=== PATIENT | female | born 1945 | race Caucasian/White ===

== ENCOUNTER 2021-02-25 07:49 | Inpatient (IN) | payer MEDICARE, OTHER ==
[~2021-02-25] VITALS: Ht 152.4 cm; Wt 62.3 kg
--- OUTSIDE RECORDS SUMMARY | 2021-02-25 07:52 | XMS ---
PreManage Notification: BRISSA COATES Security Back Tender Pulp Drier Events No recent Security Events currently on file CRITERIA MET - 6 ED Visits in 6 Months - [facility] - 3 Facilities in 90 Days - [facility] JAKI TANNER Current PHONE: Unknown Aurea Tong Community Health Worker 12/18/2020-Current PHONE: [phone] Edna has no Care Guidelines for this patient. E.Sharon VISIT COUNT (12 MO.) [address] TOTAL 8 NOTE: Visits indicate total known visits. ED/UCC VISIT TRACKING (12 MO.) 02/25/2021 07:50 [facility]TT[facility] [place] TYPE: Emergency COMPLAINT: - FALL, HEAD WOUND INJURY 12/17/2020 16:58 [facility] [place] TYPE: Emergency DIAGNOSES: - Pleural effusion, not elsewhere classified - SOB 12/16/2020 17:28 Elsie Mallory [place] TYPE: Emergency COMPLAINT: - Shortness of Breath - SHORTNESS OF BREATH - OTHER FORMS OF DYSPNEA - CRAMP AND SPASM DIAGNOSES: 0. Shortness of breath 1. Contusion of eyeball and orbital tissues, unspecified eye, initial encounter 5. Fall on same level from slipping, tripping and stumbling without subsequent striking against object, initial encounter 6. Peripheral vascular disease, unspecified 7. Hyperlipidemia, unspecified 8. Essential (primary) hypertension 9. FDC (current) use of aspirin 10. Other fpc (current) drug therapy 10/29/2020 15:54 [facility] [place] TYPE: Emergency DIAGNOSES: - Unstable angina - CHEST PAIN 10/08/2020 14:50 [facility] [place] TYPE: Emergency DIAGNOSES: - Epigastric pain - POSSIBLE HEART ATTACK 09/27/2020 09:27 [facility] [place] TYPE: Emergency DIAGNOSES: - Acute cystitis without hematuria - CONFUSION - Dehydration - Disorientation, unspecified 09/17/2020 14:31 Elsie CROOKS TYPE: Emergency COMPLAINT: - Ambulance 09/17/2020 13:05 [facility] TYPE: Emergency DIAGNOSES: - CHEST PAIN - ST elevation (STEMI) myocardial infarction of unspecified site INPATIENT VISIT TRACKING (12 MO.) 09/17/2020 14:31 Elsie CROOKS TYPE: Medical Surgical COMPLAINT: - STEMI DIAGNOSES: 0. Chest pain, unspecified 1. ST elevation (STEMI) myocardial infarction involving other coronary artery of anterior wall 2. Toxic gastroenteritis and colitis 3. Drug-induced myopathy 4. Unspecified systolic (congestive) heart failure 5. Ischemic cardiomyopathy 6. Adverse effect of antihyperlipidemic and antiarteriosclerotic drugs, initial encounter 7. Unspecified place in hospital as the place of occurrence of the external cause 8. Other chronic pain 9. Dorsalgia, unspecified 10. Restless legs syndrome 11. Opioid dependence, in remission 12. Contusion of unspecified lower leg, initial encounter 13. Obesity, unspecified 14. Body mass index [BMI] 28.0-28.9, adult [email or web address]
[2021-02-25] MEDS ORDERED: LIPITOR40 MG PO (08:35)
[2021-02-25] MEDS ORDERED: BRILINTA90 MG PO (08:35)
[2021-02-25] MEDS ORDERED: DONEPEZIL HCL5 MG PO (08:36)
[2021-02-25] MEDS ORDERED: LISINOPRIL2.5 MG PO (08:36)
[2021-02-25] MEDS ORDERED: CITALOPRAM HBR20 MG PO (08:36)
[2021-02-25] MEDS ORDERED: TOPROL XL25 MG PO (08:36)
[2021-02-25] MEDS ORDERED: REMERON15 MG PO (08:37)
[2021-02-25] MEDS ORDERED: OMEPRAZOLE20 MG PO (08:37)
[2021-02-25] MEDS ORDERED: CO Q-10200 MG PO (08:38)
[2021-02-25] MEDS ORDERED: ASPIRIN81 MG PO (08:38)
[2021-02-25] MEDS ORDERED: LASIX20 MG PO (08:38)
[2021-02-25] MEDS ORDERED: TORSEMIDE20 MG PO (08:39)
[2021-02-25] MEDS ORDERED: KLOR-CON 1010 MEQ PO (08:39)
[2021-02-25] MEDS ORDERED: NITROGLYCERIN0.4 MG SL (08:39)
--- NOTE | 2021-02-25 11:54 | NUR ---
REPORT RECEIVED FROM TARA ARGUELLO. AWAITING PTS ARRIVAL TO UNIT. DR. RAMIRES CONSULTED AND STATES NO REPEAT TROPONIN NEEDED.
--- NOTE | 2021-02-25 12:45 | NUR ---
PT ARRIVED FROM ER. 2 PERSON ASSIST UP TO USE BEDSIDE COMODE. PT VOIDS CLEAR YELLOW URINE. STANDING WEIGHT TAKEN AT BEDSIDE. PT ASSISTED WITH OLEG CARE. DEPENDS CHANGED. RESPIRATORY RATE NOTED TO BE 32-36 WITH ACTIVITY. SLOWS TO 24 WHEN RESTING. PT ORIENTED TO ALL BUT DATE AND TIME, ABLE TO STATE THAT SHE FELL BUT DOES NOT UNDERSTANDING WHY SHE IS IN THE HOSPITAL, "I DON'T FEEL SICK, WHY AM I HERE?" PT REORIENTS EASILY AND FOLLOWS DIRECTIONS WELL. TACHYCARDIA NOTED WITH ACTIVITY. CRACKELS NOTED IN BASES OF LUNGS WITH DEMINISHED LEFT LOWER LOBE. PT ENDORSES SHORTNESS OF BREATH BUT ALSO STATES HER BREATHING FEELS "NORMAL." +2 PITTING EDEMA NOTED TO BILATERAL LOWER EXTREMITIES. PTS DAUGHTER STATES HERE THIGHS ARE ALSO MORE SWOLLEN THAN USUAL, NO PITTING EDEMA NOTED AT THIS TIME. PT ORIENTED TO ROOM. BED ALARM PLACED. PTS DAUGHTER IN LAW, NIXON, AT BEDSIDE. NIXON ANSWERS QUESTIONS ABOUT PTS MEDICAL HISTORY. NO ADDITIONAL REQUESTS OR COMPLAINTS. CALL LIGHT WITHIN REACH. BED RAILS UP. BED ALARM ON.
[2021-02-25] MEDS ORDERED: ROPINIROLE HCL1 MG PO (13:23)
[2021-02-25] MEDS ORDERED: LO-DOSE ASPIRIN81 MG PO (13:24)
[2021-02-25] MEDS ORDERED: MIRTAZAPINE15 MG PO (13:27)
--- NOTE | 2021-02-25 13:30 | NUR ---
MEDICATIONS GIVEN. LUNCH ARRIVED. HEAD OF BED ELEVATED TO 52 DEGREES WHILE PT IS EATING. TACHYPNEA NOTED WITH EATING WITH RR OF 32, MD AWARE. MEDICATIONS GIVEN. NO SWALLOWING ISSUES NOTED AT THIS TIME. OXGYEN SATURATION REMAINS ABOVE 94% ON ROOM AIR. FLUID RESTRICTION REVIEWED WITH PT. PT VERBALIZES UNDERSTANDING AND IS ABLE TO REPEAT BACK INFORMATION. BED RAILS UP. CALL LIGHT WITHIN REACH. BED ALARM ON.
[2021-02-25] MEDS ORDERED: TYLENOL EXTRA500 MG PO (13:50)
[2021-02-25] MEDS ORDERED: VITAMIN D350 MC3 PO (13:50)
--- NOTE | 2021-02-25 14:02 | NUR ---
MED REC COMPLETE
--- NOTE | 2021-02-25 14:29 | NUR ---
THIS RN TO ROOM TO CHECK ON PT. PT CONTINUES TO HAVE RR OF 28-32. PT CROOKED IN BED, REPORTS SHE WAS RECENTLY UP TO BEDSIDE COMODE WITH TARA LEVY. PT REPOSITIONED IN BED FOR COMFORT. PTS DAUGHTER-IN LAW REPORTS PT HAS BEEN MAKING STATEMENTS INDICATING CONFUSION INCLUDING "AM I ." PT CONTINUES TO DENY PAIN AND NAUSEA. BED ALARM RESET. NO ADDITIONAL REQUESTS OR COMPLAINTS. CALL LIGHT WITHIN REACH. BED RAILSUP.
--- NOTE | 2021-02-25 14:34 | NUR ---
DR. RAMIRES UPDATED ON PTS WORK OF BREATHING AND RESPIRTORY RATE. NEW MEDICATIONS ORDERED.
--- NOTE | 2021-02-25 15:20 | NUR ---
THIS RN TO ROOM TO CHECK ON PT. PT RESTING IN BED. IV LASIX GIVEN BY TARA LEVY. PT CONTINUES TO DENY PAIN AND NAUSEA. PT ASSISTED WITH BRUSHING TEETH PER HER REQUEST. CURTINS CLOSED AFTER ECHOCARDIOGRAM, BLINDS REOPENED AND LIGHTS IN ROOM TURNED ON. PT VERBALIZES THAT SHE "CAN'T FIGURE OUT WHAT TIME IT IS." PT REORIENTED TO TIME AND SITUATION. PTS DAUGHTER IN LAW REMAINS AT BEDSIDE. NO ADDITIONAL REQUESTS OR COMPLAINTS. CALL LIGHT WITHIN REACH. BED RAILS UP.
--- NOTE | 2021-02-25 15:55 | NUR ---
Consult received for nutrition education for CHF. Patient has been living with her son and [id number] for the past 5 weeks. She has dementia. Son and DIL prepare meals for her. They were told patient needs a low sodium diet but that was about it when she was discharged from previous facility. Since patient has been living with family, she has not been salting her food like she used to, which was only certain things like watermelon, tomatoes, and eggs. Provided patient and family a handout titled "Heart Failure Nutrition Therapy" that has a list of foods recommended and foods not recommended. It says to limit sodium to no more than 2,000 mg per day. I explained that processed/packaged foods have the most sodium so keep those to a minimum. A few tips provided for eating out. The handout includes a sample menu. Patient needs to be repositioned so her nurse came in. Patient or family have no questions at this time. I left my name and office # on the handout in case further questions arise.
--- NOTE | 2021-02-25 16:10 | NUR ---
PT ADMITTED THIS SHIFT FOR CHF EXACERBATION. PT UP WITH 1-2 PERSON ASSIST UP TO BEDSIDE COMODE THIS SHIFT. MULTIPLE FALLS RECENTLY WITH NOTALBE BRUISING AND BUMPS ON HEAD. PT DOES NOT REMEMBER FALLS. PT TOLERATING 2GM SODIUM DIET WELL. HAS TROUBLE WITH 1600ML FLUID RESTRICITON, WANTING TO DRINK FREQUENTLY, MOUTH SWABS PROVIDED. PT NOTABLY SHORT OF BREATH WITH ACITIVTY AND OCCATIONALLY AT REST, MD AWARE OF RESPIRATORY RATE, IV LASIX GIVEN WITH GOOD RESULTS. PT DENIES PAIN AND NAUSEA THIS SHIFT, PELVIC FRACTURE NOTED FROM PAST FALL. TELEMETRY MONITORING IN PLACE WITH NORMAL SINUS RHYTEM NOTED, OCCATIONAL TACHYCARDIA ESPICAILLY WITH ACTIVITY. ECHOCARDIOGRAM DONE TODAY. PT VOIDING QUANITY SUFFICIENT. PT USES CALL LIGHT INCONSISTANTLY, BED ALARM FOR SAFETY.
--- NOTE | 2021-02-25 16:14 | NUR ---
PT CALL LIGHT ON. PT REQUESTS ASSISTANCE UP TO RESTROOM. 1 PERSON ASSIST UP TO BEDSIDE COMODE. PT VOIDS 400ML CLEAR YELLOW URINE. NOTED THAT PTS RESPIRATION RATE HAS IMPROVED, NOW 24-28 WITH ACTIVITY. OLEG CARE DONE, FRESH DEPENDS IN PLACE. 1 PERSON ASSIST BACK TO BED. PT USING MOUTH SWABS SHE STATES "I JUST NEED TO DRINK A LOT OF WATER." EDUCATION DONE WITH PT. PTS SON AT BEDSIDE AND REINFORCES EDUCATION. NO ADDITIONAL REQUESTS OR COMPLAINTS. CALL LIGHT WIHTIN REACH. BED RAILS UP. BED ALARM ON.
--- NOTE | 2021-02-25 17:38 | NUR ---
MEDICATION DUE. THIS RN TO ROOM TO CHECK ON PT. PT EATING DINNER, SITTING UP IN BED. PT CONTINUES TO STATE. "i JUST NEED TO DRINK MORE WATER" EDUCATION DONE WITH PT REGARDING FLUID RESTRICTION. VITAL SIGNS STABLE. PT RESTING IN BED WITH HEAD OF BED ELEVATED TO 35 DEGREES. PT DENIES ADDITIONAL REQUESTS OR COMPLAINTS. BED ALARM ON. CALL LIGHT WIHTIN REACH.
--- NOTE | 2021-02-25 18:09 | NUR ---
PT WAVING OUT OF WINDOW AT NURSES, SEEN BY THIS RN. THIS RN TO ROOM, PT REPORTS SHE NEEDS TO USE THE RESTROOM. 1 PERSON ASSIST UP TO BEDSIDE COMODE. PT VOIDS WITHOUT ISSUE. OLEG CARE PERFORMED, FRESH DEPENDS IN PLACE. 1 PERSON ASSIST BACK TO BED. PT CONTINUES TO HAVE RESPIRATORY RATE FROM 32-40 WITH ACTIVITY. OXGYEN SATURATIONS REMAIN 94-97%. TACHYCARDIA WITH ACTIVITY CONTINUES. MD AWARE. PT HAS SMALL BOWEL MOVEMENT WELL. SMALL HOPE OF STOOL NOTED. NIO BOWEL REGIEM ORDERED. PT DENIES CONSTIPATION. PT RESTING IN BED WITH HEAD OF BED ELEVATED TO 30 DEGREES. RR SLOWS TO 28. BED RAILS UP. CALL LIGHT WITHIN REACH. BED ALARM ON.
--- NOTE | 2021-02-25 18:20 | NUR ---
TELEMEMETRY RN CALLED TO STATE PT HAD A 6 SECOND RUN OF SVT. MD UPDATED ON SVT, RESPIRATORY RATE, LABORED BREATHING AND POSSIBLE CONSTIPATION. DR. RAMIRES STATES TO HOLD NIO BOWEL REGEMIN ORDER, NO ORDER PLACED. NEW MEDICATIONS ORDERED BY DR. RAMIRES. AWAITING VERFICATION FROM PHARAMCY.
--- NOTE | 2021-02-25 18:43 | NUR ---
MEDICATIONS DUE. IV TO LEFT FORARM ASSESSED, WNL. NO S/S OF PHELBITIS NOTED. MEDICATIONS TRIED CONNCURENTLY, PT REPORTS BURNING TO IV SITE. POTASSIUM STOPPED. MAGNEISUM INFUSING AT THIS TIME. 2ND IV STARTED PER PROTOCOL TO LEFT HAND. POTSASSIUM INFUSING THROUGH NEW RIGHT HAND IV AT 50ML/HR RATHER THAN 100ML/HR, DILUTED WITH CONCURRENT 50ML/HR NS. PT TOELRATING INFUSION AT THIS TIME WITHOUT ANY BURNING TO IV SITE. PT TAKES A SIP OF WATER AND HAS A COUGHING FIT. BED SIDE SWALLOW EVALUATION DONE. PT PASSESS WITHOUT COUGHING, THROAT CLEARNING OR OTHER SWALLOWING DIFFICTULIES NOTED. PT RESTING IN BED. BED RAILS UP. CALL LIGHT WITHIN REACH. BED ALARM ON. HEAD OF BED ELEVATED TO 37 DEGREES.
--- NOTE | 2021-02-25 19:38 | NUR ---
SHIFT REPORT RECIEVED FROM NATE PACHECO. PT RESTING IN BED, NO NEEDS AT THIS TIME. CALL LIGHT IN REACH.
--- NOTE | 2021-02-25 21:15 | EKG ---
[facility] [address] [place] [address] Signed Sinus rhythm with premature supraventricular complexes Left axis deviation Low voltage QRS Possible Inferior infarct , age undetermined Cannot rule out Anteroseptal infarct , age undetermined Abnormal ECG No previous ECGs available Confirmed by HERNANDO RAMIRES MD ([id number]) on 02/25/2021 9:15:06 PM Electronically Signed By: HERNANDO RAMIRES MD 02/25/212114 PATIENT NAME: BRISSA COATES Electrocardiogram DATE OF : 41 PHYSICIAN: HERNANDO RAMIRES MD REPORT #: [id number] REPORT IS CONFIDENTIAL AND NOT TO BE RELEASED WITHOUT AUTHORIZATION
--- NOTE | 2021-02-25 21:35 | NUR ---
IN TO GET VITALS, ASSIST PT TO THE BSC, PT BACK TO BED, NO FURTHER NEEDS AT THIS TIME
--- NOTE | 2021-02-25 21:55 | NUR ---
ASSESSMENT, VS AND I&O COMPLETED. PT EDUCATION PROVIDED CONCERNING FLUID RESTRICTION. PT FORGETFUL AND CONFUSED AT TIMES. GCS 15, ORIENTED TO SELF AND PLACE. UPPER LOBES EXPIRATORY WHEEZING AND LOWER LOBES DIMINISHED. HEART TONES REGULAR. CPOX 95, RA, TELE HR SR @88. ABD SOFT, NONTENDER, BOWEL TONES ACTIVE. CMS INTACT. BLE EDEMA 2 +, GENERALIZED THIGH EDEMA. IVs WNL, CDI, FLUSHED WELL. SCHEDULED MEDS PROVIDED. SCATTERED BRUISING, BUMPS ON HEAD AND SCATTERED ABRASIONS NOTED. AWILDA CABRERA IN ROOM TO ASSIST TO BSC.
--- NOTE | 2021-02-26 00:27 | NUR ---
bed alarm sounding. pt sba to bsc and back to bed. pt rr increases to 30 with activity. no other needs at this time. call light in reach, bed alarm on.
--- NOTE | 2021-02-26 01:38 | NUR ---
BED ALARM SOUNDING. PT ASSISTED TO BSC AND BACK TO BED. SOB WITH ACTIVITY. TELE HR ST @ 100. PT ASKS ABOUT WATER, RN REMINDS HER OF FLUID RESTRICTION, PT IS ACCEPTING. PT CONFUSED, TALKING ABOUT HAVING WRITING ON HER BACK BUT THERE IS NONE. BED ALRM AND CALL LIGHT EDUCATION PROVIDED. NO OTHER NEEDS. CALL LIGHT IN REACH.
--- NOTE | 2021-02-26 03:00 | NUR ---
BED ALARMING, PT THINKS IT IS MORNING. REORIENTED AND REMINDED SHE CANNOT HAVE MORE WATER YET. PT VERBALIZES UNDERSTANDING. ASSESSMENT COMPLETED. PT ORIENTED TO SELF AND PLACE ONLY. HR SR @ 95. LUNG SOUNDS CLEAR IN UPPER LOBES, DIMINISHED IN LOWER LOBES. CMS INTACT. BLE 1+ EDEMA. NO OTHER NEEDS. CALL LIGHT IN REACH.
--- NOTE | 2021-02-26 03:06 | NUR ---
bed alarm set off, pt sitting upright in bed, pt asks to put her clothes on, reminded pt its only 3am, pt asks for more water, let pt know she is still on a fluid restriction, but provided oral swabs for comfort, bed alarm reset
--- NOTE | 2021-02-26 05:44 | NUR ---
BED ALARM SOUNDING, PT ASKS TO USE BR. EDUCATION PROVIDED CONCERNING BED ALARM, CALL LIGHT AND BED REST PROVIDED. PT SBA TO BSC AND BACK TO BED. PT HAD SOB AND TACHYPNEA WITH ACTIVITY, SPO2 DECREASED TO 84% BUT QUICKLY RETURNED TO 90%. PT ASKS FOR WATER. GLYCERIN STICKS PROVED. BED ALARM ON. NO OTHER NEEDS. CALL LIGHT IN REACH.
--- NOTE | 2021-02-26 07:25 | NUR ---
REPORT RECEIVED FROM TARA KAUFMAN. PT RESTING WITH EYES CLOSED ON BACK WITH HEAD OF BED ELEVATED TO 30 DEGREES. HEART RATE 88 WITH NORMAL SINUS RHYTHEM NOTED. RESPIRATIONS EVEN AND UNLABORED WITH RR = 24. PT ALLOWED TO REST. BED RAILS UP. CALL LIGHT WITHIN REACH. BED ALARM ON.
--- NOTE | 2021-02-26 08:34 | NUR ---
Patient recieved AM care. Patient recieved breakfast from the dietary department. Patient is on bedrest currently.
--- NOTE | 2021-02-26 09:00 | NUR ---
THIS RN UPDATED CAM ORGANIZATION DEVELOPMENT CONSULTANT ON PTS STATUS, NEEDS AND PLAN OF CARE. CAM RN TO ASSIT PT WITH MORNING CARES AND MEDICAITONS THIS RN IS OCCUPIED.
--- NOTE | 2021-02-26 09:50 | NUR ---
MORNING ASSESSMENT DUE. PT RESTING IN BED. ACTUARIAL SCIENCE TEACHER AT BEDSIDE FOR VITAL SIGNS. 1 PERSON ASSIST UP TO BEDSIDE COMODE. PT VOIDS WIHTOUT ISSUE. RESPIRATORY RATE IMPROVED TODAY WITH ACTIVITY RR NOTED TO BE 24-32. BREATHING LESS LABORED. OLEG CARE PERFORMED. FRESH DEPENDS IN PLACE. NO GLUTEAL SKIN WOUND NOTED. STAND BY ASSIST BACK TO BED. PT ORIENTED TO SELF, FOLLOWING DIRECTIONS AND FAMILY. PT UNSURE OF PLACE, REPORTS [place] BUT KNOWS SHE IS AT THE HOSPITAL. PTS FAMILY REPORTS PT "SEEMS MORE CLEAR TODAY." PT FOLLOWING DIRECTIONS WELL, CARRING ON CONVERSATION. PTS DAUGHTER IN LAW STATES PT SEEMS "ALMOST LIKE A NEW LADY. ITS REASSURING TO SEE HER ALERTNESS AND HER LISTENING AND NOT JUST STARING." RESPIRATORY RATE 24 AT REST, IMPROVED WORK OF BREATHING TODAY. PT ABLE TO BREATH THROUGH NOSE, LESS LABORED THAT YESTERDAY. OXGYEN SATURATIONS OF 95% ON ROOM AIR. SMALL EXPIRATORY WHEEZE NOTED ON LEFT SIDE OF LUNGS. DEMINISHED LUNG SOUNDS ON LEFT WELL. PT CONTINUES TO BE MIDLY TACHYCARDIC WITH ACTIVITY, UP TO 110'S. PITTING EDEMA TO BLE IMPROVING, NOW +1. BUMPS TO HEAD UNCHANGED. PT RESTING IN BED AT THIS TIME, BED TURNED SO PT CAN VISIT WITH FAMILY AND LOOK OUT THE WINDOW. PTS DAUGHTER IN LAW REPORTS PT BEING ABLE TO LOOK AT THE LIGHT AND OUT THE WINDOW IS A BIG IMPROVMENT FOR HER. NO ADDITIONAL REQUESTS OR COMPLAINTS. LUNCH ORDER PLACED. BED ALARM ON. CALL LIGHT WITHIN REACH. FAMILY AT BEDSIDE.
--- NOTE | 2021-02-26 10:02 | NUR ---
Patient vitals, I&Os are completed. Patient via BSC, SBA, 1PA. RN is working with patient at the moment. Call light is in reach.
--- NOTE | 2021-02-26 10:04 | NUR ---
Notified by Dr Perla, pt will need placement pt SNF on Monday. Chart faxed to [facility] and called and updated.
--- NOTE | 2021-02-26 10:30 | NUR ---
PT AND FAMILY FINISHED COMPLETING POLST FORM. FORM BROUGHT TO DR. RAMIRES FOR REVIEW. COPIES MAKES AND PLACED ON CHART AND GIVEN TO PTS FAMILY. ORIGINAL ON FRONT OF CHART. CHARGE NURSE UPDATED.
--- NOTE | 2021-02-26 11:08 | NUR ---
BED ALARM SOUNDING. PT GETTING UP WITH PHYSICAL THERAPY. 1 PERSON ASSIST WITH FRONT WHEEL WALKER UP TO RESTROOM. PT ABLE TO AMBULATE WITH RR 24-32. WORK OF BREATHING STABLE. PT UP TO CHAIR WITH 1 PERSON ASSIST. CHAIR ALARM PLACED. ROSEMARIE, PHYSICAL THERAPIST REMAINS AT BEDSIDE. LINENS CHANGED. CALL LIGHT WITHIN REACH.
--- NOTE | 2021-02-26 11:30 | NUR ---
PTS FAMILY NURSES STATION ASKING IF PT CAN HAVE HER WATER. CONSULTED AND STATES OK FOR PT TO HAVE CLEAR LIQUIDS IN SMALL AMOUNTS PROIR TO SWALLOW EVALUATION.
--- NOTE | 2021-02-26 12:18 | NUR ---
LUNCH ARRIVED. PT UP TO CHAIR AND TAKING SMALL BITES. PTS FAMILY REPORTS PT STATES THE FOOD "JUST DOESN'T TASTE AT ALL." PT ABLE TO IDENTIFY ALCOHOL SWAB SMELL UNDER NOSE. PT DRINKS APPLE JUICE AND STARTS TO COUGH. TRARasta REMOVED, ESEQUIEL TRAN THERAPIST TO BEDSIDE FOR SWALLOW EVALUATION, CHELSEA UPDATED ON PTS STATUS. OXYGEN SATURATION OF 99% ON ROOM AIR. FAMILY AT BEDSIDE. CALL LIGTH WITHIN REACH. CHAIR ALARM ON.
--- NOTE | 2021-02-26 12:35 | NUR ---
ESEQUIEL TRAN THERAPIST, FINISHED WORKING WITH PT. CHELSEA STATES TO CHANGE PTS DIET TO MINCED MOIST WITH MODERATLY THICK LIQUIDS. APPLE JUICE THICKENED, WATER AT BEDSIDE THICKENED TO MODERATLY THICK LEVEL. RR NOTED TO BE 36, WORK OF BREATHING INCREASED. PT REPORTS SHE IS READY TO REST IN BED, FINISHED WITH LUNCH, MINIMAL APPITITE NOTED. DIETARY ORDER CHANGED. 1 PERSON ASSIST UP TO BEDSIDE COMODE. PT VOIDS CLEAR YELLOW URINE, OLEG CARE DONE, DEPENDS CHANGED. 1 PERSON ASSIST BACK TO BED. WARM BALNKETS PROVIDED. PT REPORTS SHE IS "SEEING WOMEN IN A CONSTITUTION PARTY DRESS AND A BOX FULL OF MEAT IN THE ROOM." PT REPORTS THESE VISIONS GO AWAY WHEN SHE OPENS HER EYES. RR SLOWS TO 24. WORK OF BREATHING IMPROVED. PT RESTING IN BED. WITH HEAD OF BED ELEVATED TO 30 DEGREES. CALL LIGHT WIHTIN REACH. FAMILY AT BEDSIDE. BED ALARM ON.
--- NOTE | 2021-02-26 14:11 | NUR ---
Family said that patient just tasted the food, but didn't like the taste so the patient didn't eat her lunch. Vitals, I&Os are complete. Patient via BSC, 100ml of urine and 1 small formed BM. B/P was 109/55. MAP was 63. The RN will be informed. The call light is in reach.
--- NOTE | 2021-02-26 14:45 | NUR ---
AFTERNOON ASSESSMENT DUE. THIS RN TO ROOM. INCREASED WORK OF BREATHING NOTED. RR = 32 AT REST. GRUNTING NOTED. PT CALMS FOR A TIME AND THEN RETURNS TO INCREASED WORK OF BREATHING. LUNG SOUNDS CLEAR, DEMINISHED IN LEFT LOWER LOBE. PT REPORTS NEED TO USE RESTROOM. 1 PERSON ASSIST UP TO BEDSIDE COMODE. RR INCREASES TO 40BPM. PT UNABLE TO TALK WHILE TRYING TO BREATH. PT HAS SMALL LOOSE BOWEL MOVEMENT. OLEG CARE DONE. 1 PERSON ASSIST BACK TO BED. PUMP ALARMING, INFUSION AND FLUSH COMPLETE. IV SALINE LOCKED, ALCOHOL CAP APPLIED. ASSESSMENT DONE: PT CONTINUES TO BE DISORIENTD TO PLACE, TIME AND DATE, PT UNSURE OF EVENTS, REPORTS SHE IS AT THE HOSPITAL FOR "MESSED UP THOUGHTS." PT UNABLE TO CLARIFY, CONTINUES BREATHING HARD BETWEEN SENTENCES. LUNG SOUNDS CLEAR ON RIGHT SIDE, LEFT SIDE SHOWS EXPIRATORY WHEEZES WITH DEMINISHED SOUNDS IN LEFT LOWER LOBE. N OADDITIONAL CHANGES TO ASSESSMENT AT THIS TIME. PT RESTING IN BED WITH HEAD OF BED ELEVATED TO [address]IVEWAY ATTENDANT, CAM, TO BEDSIDE, TO OBSERVE PTS BREATHING. BED RAILS UP. CALL LIGHT JIM WHIPPLE. BED ALARM ON.
--- NOTE | 2021-02-26 16:06 | NUR ---
THIS RN TO ROOM TO CHECK ON PT. PT RESTING IN BED WITH EYES CLOSED, RR = 24, LABORED AT TIMES. BED RAILS UP. HEAD OF BED ELEVATED TO 30 DEGREES. BED ALARM ON. PT ALLOWED TO REST.
--- NOTE | 2021-02-26 16:25 | NUR ---
PT HERE FOR CHF EXACERBATION AND INCREASED FALLS WITH INJURIES. PT UP TO BEDSIDE COMODE, CHAIR AND WITH PHYSICAL THERAPY WITH 1 PERSON ASSIST THIS SHIFT. INCREASED COUGHING EPISODES THIS SHIFT, SWALLOW EVALUATION COMPLETED. DIET ORDER CHANGED TO MINCED MOIST WITH MODERATLY THICK LIQUIDS. PT CONTINUES TO HAVE INCREASED WORK OF BREATHING AND TACHYPNEA, WORSENED WITH ACTIVITY AND AGITATION. TELEMETRY MONITORING REMAINS IN NORMAL SINUS RHYTHEM THIS SHIFT, TACHYCARDIA NOTED WITH ACTIVITIES. PT REMAINS ON ROOM AIR WITH OXGYEN SATURATIONS ABOVE 90%. PT DENIES PAIN AND NAUSEA THIS SHIFT. POLST FORM COMPLETED BY PT, PTS SON (POA), AND DR. RAMIRES. PT VOIDING QUANTITY SUFFICIENT. PT DOES NOT USE CALL LIGHT CONSISTANTLY, ALARM CHAIR ALARM.
--- NOTE | 2021-02-26 17:03 | NUR ---
KAUSHAL, RN STATES PT WAS UP TO BEDSIDE COMODE WITH HER AND BEGAN REPORTING PAIN IN LEFT HIP. THIS RN TO ROOM. PT UNABLE TO CLARIFY PAIN. PT CONFIRMS THAT HER LEFT HIP IS HURTING. FLACC SCORE OF 5/10. TYLENOL GIVEN (SEE MAR). PHARMACY CALLED AND ASKED IF PTS MEDICAITONS CAN BE GIVEN CRUSHED. MINNA DOAN STATES YES, ALL MEDICATIONS CAN BE CRUSHED. MEDICATIONS GIVEN CRUSHED IN APPLESUCE. PT SWALLOWS WELL, NO CHOAKING OR COUGHING NOTED. RR WITH GRUNTING AND MOANING CONTINUES. RR = 32. MD UPDATED. NO ADDITIONAL REQUESTS OR COMPLAINTS. BED RAILS UP. BED ALARM ON. PT REPOSITIONED IN BED WITH HEAD OF BED ELEVATED TO 35 DEGREES.
--- NOTE | 2021-02-26 17:32 | NUR ---
DR. RAMIRES UPDATED ON PT STATUS, RESPIRATOY RATE AND AGITATION. NO NEW ORDERS AT THIS TIME.
--- NOTE | 2021-02-26 17:47 | NUR ---
Patient is resting. Seems to be hyperventilating from time to time. Patient ate 25% of meal and 100 ml of juice. Call light is in reach. BP is 90/46. MAP IS 57. RN was notified.
--- NOTE | 2021-02-26 18:17 | NUR ---
BLOOD PRESSURE REPORTED TO BE LOW BY INSTRUCTOR OF SOCIOLOGY. THIS RN TO ROOM. BLOOD PRESSURE TAKEN MANUALLY TO RIGHT ARM BY THIS RN AND NOTED TO BED 79/46 (MAP OF 54), HEART RATE OF 84 AND OXYGEN SATURATION OF 94% ON ROOM AIR. BLOOD PRESSURE RETAKEN WITH PT LYING FLAT IN BED AND NOTED TO BE 75/52. BLOOD PRESSURE TO LEFT ARM NOTED TO BE 80/40. REPIRTORY RATE OF 32-40. PT MAKING STATEMENT "I'M GOING TO HERE. MY HEART JUST ISN'T MAKING IT." PALPABLE PULESE NOTED TO LEFT [facility], AND BILATERAL LOWER EXREMITIES. FAINT PULSE NOTED TO RIGHT ARM. FLACC SCORE OF 4/10. ABDOMEN SOFT WITH NO DISTENTION OR DISCOLORATION NOTED. NO NEW BRUISING, DISCOLORATION OR PAIN NOTED TO PELVIC AREA. DEPENDS BACK IN PLACE. MD UPDATED ON PTS STATUS. NO NEW ORDERS AT THIS TIME. PT RESTING IN BED WITH HEAD OF BED ELEVATED TO 34 DEGREES. BED RAILS UP. BED ALARM ON.
--- NOTE | 2021-02-26 19:10 | NUR ---
SHIFT REPORT RECEIVED FROM DAYSHIFT TARA SULLIVAN AT BEDSIDE. pt AWAKE AND INTERACTIVE WITH PRINTED CIRCUIT BOARD PCB DESIGNER, HX DEMENTIA. HOB ELEVATED AND BED ALARM ON FOR SAFETY. NO DISTRESS NOTED, RR APPROX 24, NO DISTRESS NOTED AT THIS TIME. CALL LIGHT IN REACH.
--- NOTE | 2021-02-26 19:45 | NUR ---
BED ALARM SET OFF, PT TRYING TO GET OUT OF BED, ASSISTED PT UP TO THE BSC, SMALL AMT VOID AND BM PT BACK TO BED,
--- NOTE | 2021-02-26 20:00 | NUR ---
GETTING PT VITALS, TIDIED RM, BOOSTING PT, FAMILY IN TO VISIT AT THIS TIME, NO FURTHER NEEDS, RN IN FOR ASSESSMENT
--- NOTE | 2021-02-26 20:20 | NUR ---
ASSESSMENT COMPLETE, SCHEDULED MEDS GIVEN CRUSHED AND IN APPLESAUCE, pt TOLERATED WELL AND FOLLOWED PROMPTING WHEN TO TUCK CHIN. PER TELEPHARMACY, OKAY TO GIVE EVENING MEDS TOGETHER AND CRUSHED. SON AND DAUGHTER IN LAW IN ROOM, INTERACTIVE WITH pt. pt AWAKE AND SINGING IN BED. BP RESULT OF 76/52 MAP OF 56 ON LEFT ARM, REPEATED ON RIGHT ARM WITH RESULT OF 116/85 MAP OF 94. MANUAL TAKEN ON RIGHT ARM, RESULT OF 78/50, HR REMAINS WNL DO OTHER VS. CAP REFILL WNL, BILATERAL PEDAL AND RADIAL PULSES NOTED, BUT WEAK. DENIES DIZZINESS, BUT HAS HX OF DEMENTIA, DIFFICULT TO OBTAIN ACCURATE RESPONSES AT TIMES. DR RAMIRES MADE AWARE, PER MD, CALL IF BP CONTINUES TO TREND DOWN OR IF OTHER SYMPTOMS OF POSSIBLE SEPSIS IS NOTICED. WILL CONTINUE TO MONITOR, FAMILY ALSO UPDATED. FRESH THICKENED WATER PER DIET ORDER AT BEDSIDE. BED ALARM ON. CALL LIGHT IN REACH.
--- NOTE | 2021-02-26 22:15 | NUR ---
TELE LEADS REPLACED AND IN CORRECT PLACEMENT, pt FOUND AWAKE AND IN BED PULLING OFF TELE LEADS. EDUCATION PROVIDED ON NEED FOR LEADS AND pt REORIENTED TO DATE AND TIME, EASILY REORIENTED AND IN BED WITH EYES CLOSED. NO DISTRESS NOTED, CALL LIGHT IN REACH AND BED ALARM ON FOR SAFETY.
--- NOTE | 2021-02-26 22:50 | NUR ---
BED ALARM SET OFF, IN TO CHECK ON PT, CHECKED PT FOR INCONT, ASSISTED PT TO THE BSC WITH 2PA PIVOT, VOIDED AND SMALL BM, BACK TO BED, TEMP CHECKED AND SIP OF WATER PROVIDED, PT BOOSTED AND BED ALARM RESET, NO FURTYHER NEEDSAT THIS TIME
--- NOTE | 2021-02-26 23:16 | NUR ---
BED ALARM GOING OFF, pt TALKING TO SELF AND ASKING WHAT "THAT NOISE WAS". pt INITIALLY DENIED NEEDING TO VOID BUT WAS ENCOURAGED TO TRY, UP 2PA WITH FWW TO BSC. 100MLS URINE OUTPUT WITH SMALL BM NOTED. OLEG CARE DONE AND pt BACK IN BED. RESPIRATIONS SOMEWHAT LABORED AFTER AMBULATION, BUT RESOLVED AFTER pt BOOSTED IN BED AND HOB ELEVATED. RR CURRENTLY 24, EVEN AND UNLABORED. pt TOOK X2-3 SMALL SIPS OF THICKENED WATER, NO FURTHER NEEDS. CALL LIGHT IN REACH AND BED ALARM ON.
--- NOTE | 2021-02-27 | NUR ---
PT SIITING UP IN BED, ALARM SET OFF, PT ASKING TO GET UP, READY, AND DRESSED, REMINDING PT OF THE TIME, PT WANTED TO STAND UP STILL OFFERED THE BSC JUST IN CASE, PT AGREES TO TRY, NO VOID, NO INCONT, PT BACK TO BED, SIP OF WATER PROVIDED, BED ALARM ON, PT STATES HER SON WILL BE HERE TO PICK HER UP, AND SHE WILL TAKE ANOTHER NAP BEFORE HE ARRIVES, ENCURAGED PT TO NAP, NO FURTHER NEEDS AT THIS TIME
--- NOTE | 2021-02-27 00:30 | NUR ---
BED ALARM SET OFF, PT WANTING TO GET UP TO VOID, ASSISTED OVER TO BSC, VOID AND SMEAR BM, PT BACK TO BED, BED ALARM RESET, NO FURTHER NEEDS AT THIS TIME
--- NOTE | 2021-02-27 01:00 | NUR ---
IN TO GET VITALS, REPORTED TO RN, NO FURTHER NEEDS AT THIS TIME
--- NOTE | 2021-02-27 02:06 | NUR ---
pt RESTING IN BED WITH EYES CLOSED. RR EVEN AND UNLABORED. NO DISTRESS NOTED, VS RECENTLY TAKEN AND BP IMPROVING. WILL CONTINUE TO MONITOR, CALL LIGHT IN REACH. BED ALARM ON.
--- NOTE | 2021-02-27 03:40 | NUR ---
BED ALARM SET OFF, PT NEEDING TO USE THE BSC, INCONT OF STOOL, VOID 200mls, DAILY WEIGHT TAKEN BEFORE RETURNING TO BED, SIPS OF WATER PROVIDED, BED ALARM RESET, NO FURTHER NEEDS AT THIS TIME
--- NOTE | 2021-02-27 03:55 | NUR ---
ROUNDED ON pt, pt AWAKE AND RESTING IN BED. RECENTLY UP TO VOID WITH HELP FROM INVENTORY ASSISTANT. pt APPEARS COMFORTABLE AND RELAXED, RESPIRATIONS SOMEWHAT LABORED BUT IMPROVED AFTER THERAPEUTIC COMMUNICATION AND pt INSTRUCTED TO DEEP BREATHE IN THROUGH NOSE AND OUT THROUGHT MOUTH. pt FOLLOWS COMMANDS TO BEST OF ABILITY AND IS INTERACTIVE WITH STAFF. NO ADDITIONAL NEEDS, CALL LIGHT IN REACH.
--- NOTE | 2021-02-27 06:09 | NUR ---
IN ROOM TO ROUND, pt RECENTLY UP TO VOID AND IS BACK IN BED. pt GRIMACING IN BED AND REPORTS 8/10 PAIN IN LEFT HIP/ABD AREA. PRN TYLENOL CRUSHED AND GIVEN, SEE EMAR. VSS, pt ON RA. HOB ELEVATED, BED ALARM RESUMED. NO FURTHER NEEDS, CALL LIGHT IN REACH.
--- NOTE | 2021-02-27 07:00 | NUR ---
Report received from Uyen PACHECO, pt resting in bed with eyes closed, HOB elevated, respirations even and unlabored. No needs identified at this time, will continue plan of care.
--- NOTE | 2021-02-27 08:00 | NUR ---
THIS RN TO ROOM TO ASSIST WITH MORNING CARES. PT DENIES PAIN AND NAUSEA. PT DENIES NEED TO USE BEDSIDE COMODE. 1 PERSON ASSIST UP TO CHAIR. SUPPORTED WITH PILLOWS. MORNING CARES DONE. FACE WASHED. PT DECLINES ORAL CARE AT THIS TIME. CHAIR ALARM ON. CALL LIGHT WIHTIN REACH.
--- NOTE | 2021-02-27 08:37 | NUR ---
BREAKFAST DELIVERED TO PT. PT FEEDING SELF, NO COUGHING OR CHOAKING NOTED. LINENS CHANGED. PT DENIES ADDITIONAL REQUESTS OR COMPLAINTS. REMAINS UP TO CHAIR. CALL LIGHT WITHIN REACH. CHAIR ALARM ON.
--- NOTE | 2021-02-27 08:40 | NUR ---
Scheduled medications and assessment complete. Pt sitting up in chair eating breakfast, able to take pills with applesauce and oatmeal and tolerates fair, occasional breaks to take deep breaths in between. Lungs sounds clear, pt has increased WOB and occasional wheeze with expiration. Tele #[address] Family at bedside, attentive to patient and engaged in care. No further needs at this time, call light in reach.
--- NOTE | 2021-02-27 09:31 | NUR ---
Call light answered, pt would like to return to bed. 1PA with FWW to bed, positioned in bed with pillows. Breakfast tray cleared, pt states no needs at this time, family has no needs. Call light within reach.
--- NOTE | 2021-02-27 09:54 | NUR ---
PT CALL LIGHT ON, FAMILY STATES PT NEEDS TO USE RESTROOM. 1 PERSON ASSIST UP TO BEDSIDE COMODE. DEPENDS HAVE STREAKS OF STOOL. PT VOIDS 200ML CLEAR YELLOW URINE. OLEG CARE DONE. DEPENDS CHAGNED. 1 PERSON ASSIST BACK TO BED. WARM BLANKETS PROVIDED. VITAL SIGNS STABLE. BED RAILS UP. CALL LIGHT WIHTIN REACH. BED ALARM ON. FAMILY AT BEDSIDE.
--- NOTE | 2021-02-27 11:11 | NUR ---
Call light answered, pt reports abdominal pain, assessment complete, Alycia RN in room as well. Pt denies chest pain, VSS, pt alert and oriented. HRR, pulses palpable and strong in all 4 extremities. Pt states pain "comes and goes" and describes aching, cramp type pain. Pt has had several loose BMs this am. Repositioned in bed with pillows, has no further needs. Will continue to monitor.
--- NOTE | 2021-02-27 11:46 | NUR ---
REPORT RECEIVED FROM TARA MORENO. PT RESTING IN BED, BED RAILS UP, CALL LIGHT WIHTIN REACH. BED ALARM ON, FAMILY AT BEDSIDE. RESPIRATIONS EVEN AND UNLABORED WHILE RESTING. PT ALLOWED TO RST.
--- NOTE | 2021-02-27 13:30 | NUR ---
AFTERNOON ASSESSMENT AND MEDICATION DUE. PT UP TO CHAIR VISITING WITH FAMILY. FAMILY STATES PT HAS BEEN MAKING MORE JOKES AND BECOMING "FISTEY" AND MORE LIKE HERSELF THIS AFTERNOON. PT DENIES PAIN AND NAUSEA. IV'S ASSESSED, WNL, NO S/S OF PHELBITIS NOTED, SALINE LOCKED, ALCOHOL CAPS APPLIED. PT OREITNED TO SELF, PLACE AND FAMILY. REMAINS DISORINTED TO DATE. WHEN ASKED WHY SHE IS AT THE HOSPITAL PT SINGS "BECAUSE, BECASUE, BECAUSE, BECASUE, BECAUSE OF THE WONDERFUL THINGS HE DOES." 1 PERSON ASSIST UP TO BEDSIDE COMODE. PT HAS BOWEL MOVEMENT AND VOIDS, SMALL INCONTINANT STOOL NOTED IN DEPENDS. OLEG CARE DONE. FRESH DEPENDS IN PLACE. RESPIRATORY RATE 20-24 WHEN RESTING 28-36 WITH ACTIVITY. HEART RATE REGULAR, SINUS RYTHEM NOTED, INCREASES TO 90-110'S WITH ACTIVITY. PT RESTING IN BED, HEAD OF BED ELEVATED TO 30 DEGREES. WARM BLANKETS PROVIDED. PT DENIES ADDITIONAL REQUESTS OR COMPLAINTS. CALL LIGHT WITHIN REACH. BED ALARM ON. FAMILY AT BEDSIDE.
--- NOTE | 2021-02-27 14:32 | NUR ---
DR RAMIRES UPDATED REGARDING PTS BLOOD PRESSURE AND RESPIRATORY RATE. NO NEW ORDERS AT THIS TIME. PT RESTING IN BED WITH HEAD OF BED ELEVATED TO 35 DEGREES. BED RAILS UP. BED ALARM ON. CALL LIGHT WITHIN REACH.
--- NOTE | 2021-02-27 14:34 | NUR ---
[place] [facility] [place] 1[place] FWW. VITALS AND I&O'S DONE. BLOOD PRESSURE LOW AND RESP. HIGH, RN NOTIFIED. CALL LIGHT IN REACH. CURTAIN OPEN PATIENT DOES NOT USE CALL LIGHT WELL AND MOTIONS TO STAFF. NO FURTHER NEEDS AT THIS TIME.
--- NOTE | 2021-02-27 15:44 | NUR ---
THIS RN TO ROOM TO CHECK ON PT. PT UP TO BEDSIDE COMODE WITH 1 PERSON ASSIST. PT VOIDS WITHOUT ISSUE. SMALL SMEAR OF BM NOTED. OLEG CARE DONE. DEPENDS CHANGED. 1 PERSON ASSIST BACK TO BED. PT DENIES PAIN AND NAUSEA. RESTING IN BED WITH HEAD OF BED ELEVATED TO 30 DEGREES. BED RAILS UP. CALL LIGHT WITHIN REACH. PT DENIES REQUESTS OR COMPLAINTS AT THIS TIME. BED ALARM ON.
--- NOTE | 2021-02-27 17:39 | NUR ---
EVENING MEDICATIONS DUE. PT UP TO CHAIR FOR DINNER. PT REPORTS MINIMAL APPITITE. TOOK A FEW SMALL BITES OF DINNER. PT AGITATED STATING SHE NEEDS "TO GO HOME." THERAPUTIC COMMUNICATION DONE WITH PT TO REORIENT PT AND HELP HER ADJUST TO SURROUNDINGS. MEDICATIONS GIVEN CRUSHED IN APPLESAUCE, PT SPITS UP FIRST BITE, TAKES THE REST OF HER MEDICAITONS AND APPILE SAUCE WITHOUT ISSUE. UNKNOWN AMOUNT LOST. PT REMAINS UP TO CHAIR. CALL LIGHT WITHIN REACH. CHAIR ALARM ON. PT EASILY VIEWED FROM NURSES STATION.
--- NOTE | 2021-02-27 18:34 | NUR ---
PT HERE FOR CHF EXACERBATION. 1PERSON ASSIST UP TO BEDSIDE COMODE AND TO CHAIR THIS SHIFT. PT TOLERATING MINCED MOIST DIET WITH MODERATE APPITITE, PT TOLERANT OF FLUID RESTRICTION BUT ASKS FOR MORE WATER FREQUENTLY. TELEMETRY MONITORING DC'D, SINUS RHYTHEM THIS SHIFT. PT REMAINS TACHYCARDIC AND TACHYPNIC WITH ACTIVITY. PT UP TO CHAIR FOR MEALS. PT REMAINS DISORIENTED TO EVENTS AND DATE/TIME. PT MORE CHEERFUL THIS AFTER, CONFUSED THIS EVENING. MULTIPLE SOFT BOWEL MOVEMENTS THIS SHIFT. PT VOIDING QUANTITY SUFFICIENT. PT DOES NOT USE CALL LIGHT. BED/CHAIR ALARM FOR SAFETY.
--- NOTE | 2021-02-27 18:48 | NUR ---
PT CRYING OUT "I'M BLEEDING." THIS RN TO ROOM. PT HAS PULLED OUT LEFT FORARM IV. CATHETER ASSESSED, TIP INTACT. PRESSURE HELD TO SITE WITH GAUZE AND COBAN. BLEEDING STOPS EASILY. 1 PERSON ASSIST UP TO BEDSIDE COMODE. OLEG CARE DONE. DEPENDS CHANGED. 1 PERSON ASSIST BACK TO BED. PT RESTING IN BED, HEAD OF BED ELEVATED TO 30 DEGREES. PT SUPPORTED WITH PILLOWS, NO ADDIITONAL REQUESTS OR COMPLAINTS. CALL LIGHT WITHIN REACH. BED RAILS UP. BED ALARM ON.
--- NOTE | 2021-02-27 19:25 | NUR ---
SHIFT REPORT RECEIVED FROM DAYSSCFT TARA SULLIVAN. pt AWAKE AND RESTING IN BED, NO DISTRESS NOTED. FAMILY ALSO IN ROOM. TELE RECENTLY DC'D, HOB ELEVATED. CALL LIGHT IN REACH AND BED ALARM ON.
--- NOTE | 2021-02-27 19:30 | NUR ---
REPORT GIVEN TO TARA CHAVEZ, WHO IS ASSUMING CARE OF PT. PT RESTING IN BED TALKING WITH HER SON.
--- NOTE | 2021-02-27 20:37 | NUR ---
ASSESSMENT COMPLETE, SCHEDULED MEDS GIVEN, CRUSHED AND IN APPLESAUCE. PROTONIX GIVEN WHOLE, UNABLE TO CRUSH THIS SPECIFIC MED. pt TOLERATED TAKING ALL MEDS. pt INTERACTIVE WITH STAFF AND FAMILY IN ROOM, ENGAGING AND FOLLOWS PROMPTS WHEN INSTRUCTED TO TUCK CHIN. THICKENED WATER AT BEDSIDE PER MD ORDERS. pt UP 2PA TO BSC WITH HELP FROM BUTTON SAWYERTARA QUIGLEY. pt BACK IN BED, HOB ELEVATED FOR COMFORT. BLE YEE AND COOL TO THE TOUCH, PER DAUGHTER IN LAW, "SHE HAS REALLY BAD CIRCULATION AND HER FEET LOOK LIKE THAT IF SHE'S DANGLING THEM OR SITTING DOWN". SOCKS IN PLACE WITH WARM BLANKET. BED ALARM ON. NO FURTHER NEEDS, CALL LIGHT IN REACH.
--- NOTE | 2021-02-27 22:10 | NUR ---
BED ALARM SET OFF A FEW TIMES EACH TIME IN TO CHECK ON PT, PT WAS RESTING ON LRFT SIDE, THIS TIME OBSEVRED PT SITTING UP, IN TO ASSIST PT, PT STATED SHE DIDNT KNOW WHAT SHE NEEDED OR WHY SHE WAS SITTING UP, TOLD THIS POTATO BUCKER, NEVERMIND I WILL LAY BACK DOWN AND REST SOME MORE, ASSISTED PT BACK INTO BED, BLANKETS UP, PT THEN STATED SHE WAS STILL HAVING PAIN AND MOTIONING TO THE LEFT SIDE STOMACH AREA, RN IS AWARE, NO FURTHER NEEDS, BED ALARM RESET
--- NOTE | 2021-02-27 23:00 | NUR ---
PT GETTING OUT BED, PT WITH GOWN OFF, PT WANTS TO GET IN THE TUB, TRYING TO GO TO OUTSIDE OF RM TO LOOK FOR THE TUB, PT REDIRECTABLE TO TIME AND STATES OH I BETTER GET BACK INTO BED, BED ALARM RESET, NO FURTHER NEEDS AT THIS TIME
--- NOTE | 2021-02-27 23:03 | NUR ---
BED ALARM GOING OFF, SYRUP FILTERER RICK IN ROOM WITH pt. NO NEEDS VERBALIZED, BED ALARM RESUMED. CALL LIGHT IN REACH.
--- NOTE | 2021-02-27 23:36 | NUR ---
BED ALARMING GOING ON, pt ATTEMPTING TO GET OOB AND STATES, "ANNABEL CARMELA". pt REORIENTED TO PLACE AND TIME. pt THEN STATES, "I HAVE TO PEE". pt UP 2PA TO BSC AND BACK TO BED. ALARM RESUMED. NO FURTHER NEEDS, CALL LIGHT IN REACH.
--- NOTE | 2021-02-28 02:38 | NUR ---
pt RESTING QUIETLY IN BED, EYES CLOSED. RR EVEN AND UNLABORED. HOB ELEVATED. BED ALARM ON FOR SAFETY AND pt REMAINS IN VIEW OF RN STATION. CALL LIGHT IN REACH.
--- NOTE | 2021-02-28 03:00 | NUR ---
Answerd call bed alarm. Pt found at end of bed, 2pa to bsc. castillo-care. Pt back in bed, call light within reach. no further assitance needed at this time.
--- NOTE | 2021-02-28 04:38 | NUR ---
pt HERE FOR CHF EXACERBATION, HX DEMENTIA. PLEASANT AND EASILY REORIENTED, BED ALARM ON FOR SAFETY. 1-2PA WITH FWW TO BSC, URGENCY WITH URINATION. VOIDING QS. MINCED/MOIST DIET WITH FLUID RESTRICTION-THICKENED LIQUIDS. pt FOLLOWS COMMANDS AND IS ABLE TO TUCK CHIN-MEDS CRUSHED IN APPLESAUCE. PRN TYLENOL FOR PAIN, CURRENT PELVIC FRACTURE. DAILY WEIGHT.
--- NOTE | 2021-02-28 05:44 | NUR ---
ROUNDED ON pt, pt AWAKE AND IN BED. VS AND WEIGHT RECENTLY OBTAINED BY AWILDA CABRERA. PER LETTER OF CREDIT DOCUMENT EXAMINER, pt RECENTLY TOOK A SIP OF WATER. SOME MILD INTERMITTENT COUGHING NOTED. NO DISTRESS, NO CHANGE TO LUNG SOUNDS. RR WNL. HOB REMAINS ELEVATED, BED ALARM ON. CALL LIGHT IN REACH.
--- NOTE | 2021-02-28 06:41 | NUR ---
SCHEDULED PROTONIX GIVEN IN APPLESAUCE, NO ISSUES SWALLOWING NOTED. CALL LIGHT IN REACH, BED ALARM ON FOR SAFETY.
--- NOTE | 2021-02-28 07:30 | NUR ---
Shift report received from TARA Qiu, pt resting safely in bed w/ call light in reach and bed alarm on. Pt denies any needs at this time.
--- NOTE | 2021-02-28 08:00 | NUR ---
PT SITTING UP IN CHAIR W/ CALL LIGHT IN REACH AND CHAIR ALARM ON. MORNING ASSESMENT COMPLETED AND SCEDULED MEDS GIVEN W/ APPLE SAUCE PER PROVIDER ORDERS. PT IS VERY EMOTIONAL THIS MORNING STATING SHE WANTS TO GO HOME AND DOESN'T UNDERSTAND WHY SHE'S HERE. PT REORIENTED AND REASSURED.
--- NOTE | 2021-02-28 08:50 | NUR ---
patient up to chair for breakfast, requesting water this [employer] gave sips. patient is on a fluid restrictions. warm washcloth for face.
--- NOTE | 2021-02-28 10:14 | NUR ---
PT UP TO BATHROOM WITH 1PA ASSIST AND FWW. PT CONTINENT AND NEEDS CONSTANT VERBAL QUES. PT HAS CAREGIVER IN ROOM WHO HELPS REMIND PT OF BREATHING AND SAFE BODY MOVEMENT. CHAIR ALARM NOT ON WITH FAMLIY IN ROOM, CAREGIVER INSTRUCTED TO TELL STAFF IF THEY PLAN TO LEAVE THE ROOM SO CHAIR ALARM CAN BE TURNED BACK ON. TARA ANTONIO AWARE. CALL LIGHT WITHIN REACH. NO FURTHER NEEDS AT THIS TIME.
--- NOTE | 2021-02-28 10:30 | NUR ---
PT RESTING IN BED SAFELY W/ CALL LIGHT IN REACH AND BED ALARM ON, SON IN ROOM.
--- NOTE | 2021-02-28 12:30 | NUR ---
PT CALLED FOR ASSISTANCE TO THE BATHROOM, SBA, PT ABLE TO URINATE. PT NOW SITTING UP IN CHAIR ATTEMPTING TO EAT LUNCH. CALL LIGHT IN REACH AND SON IN ROOM.
--- NOTE | 2021-02-28 14:30 | NUR ---
Pt resting in bed w/ call light in reach, son at bedside. Pt denies any needs at this time.
--- NOTE | 2021-02-28 16:08 | NUR ---
Pt called for assistance to the bathroom, AWILDA Robles in room to help pt.
--- NOTE | 2021-02-28 18:02 | NUR ---
Pt up for meals, resting in bed in between, 1PA/SBA w/FWW. Pt w/ Hx of dementia, chair and bed alarms in place. Pt w/ incontinence dribbling, depends in place. Poor appetite, but sufficient fluid intake and qauntity sufficient urine output. Pt worked w/ PT today.
--- NOTE | 2021-02-28 19:05 | NUR ---
SHIFT REPORT RECEIVED FROM DAYSAZFT TARA HERNANDEZ AT BEDSIDE. pt RESTING QUIETLY IN BED, EYES CLOSED. RR APPROX 24-26. NO DISTRESS NOTED, CALL LIGHT IN REACH AND BED ALARM ON.
--- NOTE | 2021-02-28 20:10 | NUR ---
PT's SON TO NURSES STATION. ASSISTED pt TO RESTROOM, SBA WITH FWW. pt TOLERATED WELL. CLEAR VOID. ASSISTED BACK TO BED. ALARM ON. SON OUT OF ROOM. PERSONAL SUPPLIES IN REACH.
--- NOTE | 2021-02-28 22:00 | NUR ---
ASSESSMENT COMPLETE, SCHEDULED MEDS GIVEN (SEE EMAR). MEDS CRUSHED AND GIVEN IN APPLESAUCE, NO ISSUES SWALLOWING NOTED. THICKNED WATER PER DIET ORDERS AT BEDSIDE, pt ABLE TO TUCK CHIN WITH PROMPTING. pt UP 1PA WITH FWW TO BATHROOM TO VOID AND BACK TO BED, STEADY ON FEET. BED ALARM ON, CALL LIGHT IN REACH. BANDAIDS X1 NOTED TO LLQ OF ABD AND X1 ON LEFT UPPER THIGH, SCANT SHADOWING NOTED TO BANDAIDS. NO FURTHER NEEDS, CALL LIGHT IN REACH.
--- NOTE | 2021-03-01 00:30 | NUR ---
ROUND ON pt, pt RESTING QUIETLY IN BED, EYES CLOSED. NO DISTRESS NOTED, CALL LIGHT IN REACH AND BED ALARM ON. RR EVEN AND UNLABORED.
--- NOTE | 2021-03-01 01:22 | NUR ---
BED ALARM GOING OFF, pt UP SBA WITH FWW WITH MURAL ARTIST TO VOID AND BACK IN BED. THIS RN CALLED INTO ROOM, SCANT OOZING NOTED TO LLQ LIKELY D/T SUBQ INJECTION ON DAYSHIFT, NEW BANDAID IN PLACE. NEW GOWN ALSO ON. NO FURTHER NEEDS, CALL LIGHT IN REACH. BED ALARM ON.
--- NOTE | 2021-03-01 03:02 | NUR ---
pt RESTING IN BED WITH EYES CLOSED, RR EVEN AND UNLABORED. HOB ELEVATED, BED ALARM ON. CALL LIGHT IN REACH.
--- NOTE | 2021-03-01 06:50 | NUR ---
ASSESSMENT COMPLETE, NO NEW CHANGES OR CONCERNS. ORTHOPHOTOGRAPHY TECHNICIAN IN ROOM COLLECTING VS AND I&O'S. CALL LIGHT IN REACH.
--- NOTE | 2021-03-01 07:25 | NUR ---
SHIFT REPORT GIVEN TO TARA OCASIO, pt VERBALIZING PAIN IN ABD, PRN ZOFRAN GIVEN. SEE EMAR. IV SITE WNL. BED ALARM ON, CALL LIGHT IN REACH.
--- NOTE | 2021-03-01 07:40 | NUR ---
SHIFT REPORT RECEIVED FROM TARA CHAVEZ, PT RESTING IN BED SAFELY W/ CALL LIGHT IN REACH AND BED ALARM ON, PT C/O ABD PAIN, PRN ZOFRAN GIVEN BY TARA CHAVEZ.
--- NOTE | 2021-03-01 08:10 | NUR ---
PT WAS IN BED. PT REFUSED WARM WASHCLOTH FOR THEIR FACE. PT REFUSED TO GET UP IN THE RECLINER FOR BREAKFAST. CALL LIGHT IS WITHIN REACH. WHITEBOARD WAS UPDATED. NO FURTHER NEEDS AT THIS TIME.
--- NOTE | 2021-03-01 08:30 | NUR ---
PT SITTING UP IN BED W/ CALL LIGHT IN REACH AND BED ALARM ON, PT DROWSY BUT EASILY AROUSED. MORNING ASSESMENT COMPLETED AND PT ABLE TO SWALLOW MEDS W/ APPLE SAUCE. PT DENIES NEED TO URINATE, DEPENDS DRY.
--- NOTE | 2021-03-01 10:30 | NUR ---
Spoke with pt and her daughter in law Savita. Pt is smiling and asking me if I know Savita is her mom. Savita is kind and tells her how much she loves her. Discussed, pt and she moved in with son and JUDIE 5 week ago. They are in a 2 story home and pt lives on main floor.She is not able to remember to use her walker. Also gets up in the night and wanders in the house. They have a camera with an alarm when she gets up. Pt believes son and JUDIE are her parents. Pt uses a cane, walker wc, and shower chair. Savita feels pt is unsafe in their home and would like placement. She has contacted [facility] and [facility]. I will follow up. I did send pt's chart to [facility] last week at the request of Dr. Perla.
--- NOTE | 2021-03-01 10:30 | NUR ---
PT WORKING W/ ST, NO NEEDS AT THIS TIME, [id number] IN ROOM.
--- NOTE | 2021-03-01 12:30 | NUR ---
PT HAS YET TO VOID DENIES NEED TO GO, BUT TAKEN TO BATHROOM AND ABLE TO VOID, PROVIDER NOTIFIED OF PT'S LOW URINE OUTPUT. PT NOW SITTING UP IN CHAIR W/ CALL LIGHT IN REACH AND CHAIR ALARM ON, [id number] IN ROOM.
--- NOTE | 2021-03-01 14:14 | NUR ---
Called and spoke with Poonam Ferreira and Yasmani Grossman. Neither have beds available at this time. Left message for [facility]. Called and spoke with Stacy at [facility] and they did review her chart. She will call back as they had questions about this pt's dementia and fx pelvis.
--- NOTE | 2021-03-01 14:45 | NUR ---
PT RESTING IN BED SAFELY W/ CALL LIGHT IN REACH AND BED ALARM ON, [id number] IN ROOM. PT GIVEN ORAL POTASSIUM PER PROVIDER ORDER.
--- NOTE | 2021-03-01 14:55 | NUR ---
IN ROOM TO CHECK VITALS, RN IN ROOM AT THIS TIME. VITALS AND I&O'S CHARTED. BLOOD PRESSURE LOW, RN NOTIFIED. CALL LIGHT IN REACH. VISITOR IN ROOM. NO FURTHER NEEDS AT THIS TIME.
--- NOTE | 2021-03-01 15:04 | NUR ---
Pt's BP low, provider called and notified, TORB for 250mL LR bolus to infuse over 30 min, then recheck BP and update provider. Bolus started
--- NOTE | 2021-03-01 16:01 | NUR ---
IV bolus completed, BP now WNL, provider called and updated.
--- NOTE | 2021-03-01 17:02 | NUR ---
PATIENT UP TO BATHROOM, 1PA FWW. PATIENT THEN TO SHOWER CHAIR, 1PA PIVOT. OLEG CARE, SKIN CARE, ORAL CARE, SHAMPOO DONE. NEW GOWN, ATTENDS, AND SOCKS PROVIDED. PATIENT NOW BACK TO CHAIR, 1PA FWW. VISITOR IN ROOM. CHAIR ALARM ON. CALL LIGHT IN REACH. NO FURTHER NEEDS AT THIS TIME.
--- NOTE | 2021-03-01 17:07 | NUR ---
AWILDA Pereira and this nurse showered pt, oral care completed. Fresh linens, gown, and depends. Pt 1PA w/FWW to chair, sitting up safely w/ call light in reach and alarm on.
--- NOTE | 2021-03-01 17:23 | NUR ---
Pt has had low urine output, pt urinated 50mL, bladder scan showed a remaining 90mL. Provider called and updated, no new orders at this time.
--- NOTE | 2021-03-01 18:11 | NUR ---
Pt up in chair for meals, resting in bed inbetween. 1PA w/FWW to BR. Pt w/ low urine output for shift, provider aware. Pt showered 2PA. Pt w/ poor appetite and needs encouragement to drink fluids. Pt w/ hx of dementia, bed and chair alarms in place.
--- NOTE | 2021-03-01 18:31 | NUR ---
PATIENT UP TO BATHROOM FROM CHAIR, 1PA FWW. PATIENT THEN TO BED FROM BATHROOM, 1PA FWW. PATIENT TOLERATED AMBULATING WELL. VITALS AND I&O'S CHARTED. CALL LIGHT IN REACH. NO FURTHER NEEDS AT THIS TIME.
--- NOTE | 2021-03-01 19:20 | NUR ---
REPORT RECEIVED FROM TARA OCASIO. pt RESTING IN BED WITH EYES CLOSED, BREATHING UNLABORED. BED ALARM ON. SON IN ROOM.
--- NOTE | 2021-03-01 20:48 | NUR ---
pt AWAKE RESTING IN BED. ASSISTED TO REPOSITION TO LEFT SIDE, PILLOW UNDER RIGHT HIP. SON IN ROOM. pt IS ORIENTED TO PERSON, DATE, PLACE NOT EXACT LOCATION. REORIENTATION TO EVENT, DATE PROVIDED. LUNG SOUNDS CLEAR THROUGHOUT ALL LOBES. 2+ EDEMA BLE, LEGS ELEVATED ON PILLOWS AT THIS TIME. pt C/O 7.5/10 HEADACHE. PRN TYLENOL ADMINISTERED. PO PILLS WITH APPLE SAUCE. CALL LIGHT IN REACH. BED ALARM ON.
--- NOTE | 2021-03-01 22:30 | NUR ---
pt CALLING OUT. ALLOTTED WATER PROVIDED REQUESTED. CALL LIGTH IN REACH. BED ALARM ON. pt DENIES TOILETING OR ADDITIONAL NEEDS. REQUESTING TO SLEEP.
--- NOTE | 2021-03-01 23:12 | NUR ---
CALL LIGHT ANSWERED. SBA TO BSC FOR VOID AND BACK TO BED. SPO2 WNL ON RA. SCDS ON. pt COMPLAINS OF LEFT EYE PAIN, 8/. PRN TYLENOL ADMINISTERED. pt DOES NOT KNOW WHAT SHE DID TO EYE. EYE RED, pt NOTABLY RUBBING EYE. CALL LIGHT IN REACH.
--- NOTE | 2021-03-02 01:08 | NUR ---
CHECKED ON pt. RESTING IN BED WITH EYES CLOSED. BREATHING EQUAL AND UNLABORED. BED ALARM ON.
--- NOTE | 2021-03-02 04:00 | NUR ---
CHECKED ON pt. RESTING IN BED, BREATHING UNLABORED. WIG OVER EYES. BED ALARM ON. LIGHTS OFF IN ROOM.
--- NOTE | 2021-03-02 06:07 | NUR ---
BASS STRING WINDER OUT OF pt ROOM AFTER LAB DRAW. pt DROWSY, WIG CONTINUES TO COVER EYES. pt REQUESTING TO WAIT TO GET OUT OF BED FOR DAILY WEIGHT, TO USE RESTROOM. ASSESSMENT COMPLETE. ATTENDS DRY. CALL LIGHT IN REACH. BED ALARM ON.
--- NOTE | 2021-03-02 07:06 | NUR ---
pt AWAKENS TO VOICE. STANDING WEIGHT 64.5 KG. SBA WITH FWW TO RESTROOM FOR CONCENTRATED VOID. pt BACK IN BED. LEGS ELEVATED. BED ALARM ON. CALL LIGHT IN REACH. DRINKS OF WATER PROVIDED.
--- NOTE | 2021-03-02 07:29 | NUR ---
Shift report received from TARA Villa, pt resting safely in bed w/ call light in reach, bed alarm on, and eyes closed RR even and unlabored.
--- NOTE | 2021-03-02 08:00 | NUR ---
PT WAS IN BED. THIS MOSAIC TILER HELPED PT INTO THE RECLINER. PT WAS GIVEN BREAKFAST. BED LINENS WERE CHANGED. WHITEBOARD WAS UPDATED. CALL LIGHT IS WITHIN REACH. NO FURTHER NEEDS AT THIS TIME.
--- NOTE | 2021-03-02 09:00 | NUR ---
PT SITTING UP IN CHAIR, W/ CALL LIGHT IN REACH AND ALARM ON. MORNING ASSESMENT COMPLETE AND SCHEDULED MEDS GIVEN W/ APPLE SAUCE. PT C/O CROSS AND SORE BUTTOCKS, PT REPOSITIONED IN CHAIR AND HIPS ELEVATED W/ PILLOWS, PRN TYLENOL GIVEN. BP LOW, METOPROLOL HELD, PROVIDER NOTIFIED, NO NEW ORDERS AT THIS TIME.
--- NOTE | 2021-03-02 10:00 | NUR ---
PT DUE TO VOID, AWILDA KRAUS INSTRUCTED TO ASSIST PT TO BATHROOM, 1PA W/FWW TO BATHROOM, PT ABLE TO VOID A SUFFICIENT AMOUNT OF URINE. PT BACK TO CHAIR, CALL LIGHT IN REACH, ALARM ON, AND [id number] NOW IN ROOM.
--- NOTE | 2021-03-02 10:29 | NUR ---
PATIENT TO BED FROM CHAIR, 1PA FWW. DAUGHTER IN LAW IN ROOM. BED ALARM ON. CALL LIGHT IN REACH. NO FURTHER NEEDS AT THIS TIME.
--- NOTE | 2021-03-02 10:30 | NUR ---
Updated DILSavita, pt is sleeping. [facility] will accept pt for rehab. I also received a call from Gladis Solis and she asks Savita call her, she is now aware pt's dementia is severe. Gladis will start process for medicaid. Spoke with Dr. Fisher and pt will be dischargable in 1-2 more days. Daughter in law in bring in pts Vaccination cards so I can fax to [facility].
--- NOTE | 2021-03-02 12:14 | NUR ---
Pt sitting up in chair w/ call light in reach, alarm on, and [id number] in room, eating lunch. Pt denies any needs at this time.
--- NOTE | 2021-03-02 14:12 | NUR ---
PT RESTING IN BED SAFELY W/ CALL LIGHT IN REACH AND BED ALARM ON, EYES CLOSED RR EVEN AND UNLABORED.
--- NOTE | 2021-03-02 16:05 | NUR ---
REPORT GIVEN TO TARA FIELDS, PT STABLE AT THIS TIME.
--- NOTE | 2021-03-02 16:08 | NUR ---
THIS STRUCTURES MECHANIC AND STRUCTURES MECHANIC GIN WALKED WITH PT AROUND THE MED SURG FLOOR. PT IS NOW IN BED. CALL LIGHT IS WITHIN REACH. NO FURTHER NEEDS AT THIS TIME.
--- NOTE | 2021-03-02 16:17 | NUR ---
Patient resting in bed, alert to self. Patient has no distress or needs. Personal supplies and call light within reach.
--- NOTE | 2021-03-02 17:58 | NUR ---
this metal burrer helped pt to the bathroom. pt is now in bed. call light is within reach. no further needs at this time.
--- NOTE | 2021-03-02 19:30 | NUR ---
IN ROOM FOR SHIFT CHANGE REPORT, PT IS AWAKE IN BED WATCHING TV. BED ALARM IS ON AND CALL LIGHT IS CLOSE. PT DENIES NEEDS AT THIS TIME.
--- NOTE | 2021-03-02 20:00 | NUR ---
SPOKE WITH PT'S SON CONRADO HE AGREES TO KEEP HIS NIXON AND HIMSELF ONLY CONTACTS TO GIVE INFO TO AND RECEIVE PHONE CALLS FROM. HE STATES HE WILL UPDATE HER SISTER IF SHE HAS ANY QUESTIONS.
--- NOTE | 2021-03-02 21:15 | NUR ---
IN ROOM TO ASSESS PT, SHE REPORTS PAIN 8/10 IN HER BOTTOM. SHE WAS SITTING UP HIGH IN BED, SHE IS NOW LAYING ON R SIDE WITH PILLOW BEHIND HER/UNDER HIP. PT'S BP WAS IN 90'S SBP BUT PT DENIES ANY SYMPTOMS. SHE IS ALERT TO SELF AND CONFUSED. BED ALARM IS ON. PT DENIES NEED TO VOID AT THIS TIME. CALL LIGHT IS CLOSE AND BED ALARM IS ON. PT DENIES FURTHER NEEDS. CALL LIGHT IS CLOSE.
--- NOTE | 2021-03-02 21:53 | NUR ---
PT HEARD CALLING OUT "HELP" FROM [facility]. PT PLEASANTLY CONFUSED AND WANTS TO GET OUT OF BED. 2PA TO BSC TO VOID. GAIT STEADY. NEEDS CONSTANT QUEING. STAFF ASSIST WITH OLEG CARE. BACK TO BED, CYNTHIA WELL. ASSISTED PT TO REPOSITION FOR COMFORT. NO FURTHER NEEDS. BED ALARM FOR SAFETY. CALL LIGHT IN REACH.
--- NOTE | 2021-03-02 23:05 | NUR ---
PT'S BED ALARM SOUNDED, 2PA WITH FWW TO RECLINER BECAUSE PT STATES HE BACK HURTS IN THE BED. SHE HAS FEET UP AND CHAIR ALARM ON. PT DENIES FURTHER NEEDS AT THIS TIME. CALL LIGHT IS CLOSE.
--- NOTE | 2021-03-03 00:56 | NUR ---
PT SET OFF CHAIR ALARM AND WAS LAYING IN BED. ASSISTED HER TO GET REPOSITIONED, BED ALARM IS ON AND CALL LIGHT IS CLOSE. PT DENIES NEEDS.
--- NOTE | 2021-03-03 02:40 | NUR ---
PT IS RESTING WITH EYES CLOSED, RR IS EVEN AND NONLABORED. CALL LIGHT IS CLOSE AND BED ALARM IS ON.
--- NOTE | 2021-03-03 05:21 | NUR ---
BED ALARM SOUNDED, IN ROOM TO CHECK ON PT. VS TAKEN AND I&O'S ENTERED. ADMINISTERED PROTONIX. GAVE PT 150MLS OF MODERATLY THICK LIQUIDS. PT UP TO USE RESTROOM SBA W/FWW AND BACK TO BED. PT DENIES FURTHER NEEDS. CALL LIGHT IS CLOSE AND BED ALARM IS ON.
--- NOTE | 2021-03-03 07:22 | NUR ---
Progress note, PT/OT note sent to [facility] by fax.
--- NOTE | 2021-03-03 07:33 | NUR ---
this rn received report from bonita virk. pt sitting up in bed awake but appears content.
--- NOTE | 2021-03-03 08:35 | NUR ---
THIS RN IN PTS ROOM TO GIVE PT HER MORNING MEDS. PT REPORTS THAT SHE IS HAVING PAIN IN HER BACK BUT WHEN THIS RN TALKED WITH HER FURTHER PT REPORTS THAT IT IS PAIN IN HER HIP. THIS RN PROVIDED PT WITH TYLENOL FOR PAIN. PT REPORTS NO NEED FOR NOTHING ELSE AT THIS TIME
--- NOTE | 2021-03-03 10:00 | NUR ---
Spoke with pt and JUDIE. Updated possible dc to [facility] tomorrow. Pt is in a great mood today, joking and laughing. JUDIE explained [facility] for rehab and pt states understanding. JUDIE was also able to speak with Gladis Solis from [facility] and complete initial interview. JUDIE will also call and put name on waitlist for [facility], and [facility] once pt dcs from SNF. Brochure for [facility] given.
--- NOTE | 2021-03-03 10:54 | NUR ---
Vitals, I&Os are done. Has had an intake of 250 ml in fluids this morning so far. Call light is in reach.
--- NOTE | 2021-03-03 12:04 | NUR ---
this rn in pts room to check on pt. pt states that she is doing well and needs nothing at this time. pts daughter in law at bedside and has no questions
--- NOTE | 2021-03-03 14:20 | NUR ---
THIS RN IN PTS ROOM TO GIVE PT HER AFTERNOON MEDS. PTS SON AND DUAGHTER IN LAW IN ROOM, ALL HAVING A FUN TIME. PT SEEMS TO BE MORE ALERT AND ORIENTED AROUND THEM THAN WHEN FAMILY IS NOT BEEN IN ROOM
--- NOTE | 2021-03-03 14:22 | NUR ---
Notified by Stacy at [facility]. They have covid out break and are unable to accept pt. Will fax chart to [facility]. Called and left a message with Charlene asking if she could take this pt.
--- NOTE | 2021-03-03 17:16 | NUR ---
this rn in pts room to give pt her evening meds. pt reports that she has had a good day
--- NOTE | 2021-03-03 19:10 | NUR ---
IN ROOM FOR REPORT, PT'S SON JUST ARRIVED. CALL LIGHT IS CLOSE AND BED ALARM IS ON.
--- NOTE | 2021-03-03 20:25 | NUR ---
PT CALLED, REQUESTED TO USE BATHROOM. ASSIST OUT OF BED, FWW AMBULATE SLOW AND STEADY TO BATHROOM. BACK TO BED, REQUIRED ASSIST WITH LEGS INTO BED. REPOSITIONED, COVERED PER PT CHOICE, ALL PERSONAL ITEMS WITHIN REACH.
--- NOTE | 2021-03-03 21:10 | NUR ---
PT IS RESTING WITH EYES CLOSED, RR IS EVEN AND NONLABORED. CALL LIGHT IS CLOSE AND BED ALARM IS ON.
--- NOTE | 2021-03-03 22:00 | NUR ---
CALL LIGHT ON, PT ASKING TO USE THE TOILET, IN TO ASSIST PT TO THE TOILET, 1PA FWW, PT BACK TO BED, ASKING TO CALL A FRIEND AND GET CLOTHES FOR HER DISCHARGE SOON, PT ORIANTED BACK TO TIME, (10pm) PT STATES OH SHOOT I BETTER GET BACK TO BED, VITALS TAKEN, WATER REFRESHED AND PT BACK TO RESTING, NO FURTHER NEEDS AT THIS TIME, BED ALARM IN PLACE
--- NOTE | 2021-03-03 22:25 | NUR ---
PT WAS SLEEPING, WAITED FOR PT TO CALL TO USE THE RESTROOM TO ADMINISTER MEDICATIONS AND DO ASSESSMENT. SHE DENIES PAIN AND SOB. AFTER TAKING IN DEEP BREATHS PT STARTED COUGHING. PT IS AWARE AT THIS TIME THAT WE ARE TRYING TO FIND A SNF FOR HER AT [place] SHE IS ALSO ORIENTED TO LOCATION AT THIS TIME. ALTHOUGH PT'S STATES HER MOM IS COMING TO VISIT HER IN THE MORNING. PT DENIES NEEDS AT THIS TIME. CALL LIGHT IS CLOSE. BED ALARM IS ON.
--- NOTE | 2021-03-03 23:05 | NUR ---
PT CALLED, NO RESPONSE, IN TO CHECK ON PT, PT NEEDED A EMISIS BED TO SPIT UP SPUTUM, ALSO PROVIDED PT WITH TABLESIDE TRASH BAG AND NEW TISSUEBOX, NO FURTHER NEEDS AT THIS TIME, PT IS ADAMENT ABOUT SEEING THE DOCTOR FOR HER COUGH,
--- NOTE | 2021-03-04 00:25 | NUR ---
CALL LIGHT ON, PT NEEDED TO VOID, UP TO THE TOILET, BACK TO BED, NO FURTHER NEEDS AT THIS TIME
--- NOTE | 2021-03-04 00:58 | NUR ---
PT IS RESTING WITH EYES CLOSED, RR IS EVEN AND NONLABORED. CALL LIGHT IS CLOSE AND BED ALARM IS ON.
--- NOTE | 2021-03-04 01:55 | NUR ---
IN TO PROVIDE PT WITH MILKSHAKE AND WATER REFRESHED, NO FURTHER NEEDS
--- NOTE | 2021-03-04 03:16 | NUR ---
BED ALARM SET OFF, PT NEEDING TO GET UP TO THE TOILET, SBA FWW TO THE TOILET, PT THEN BACK TO BED, NO FURTHER NEEDS AT THIS TIME
--- NOTE | 2021-03-04 03:24 | NUR ---
CHECKED ON PT SINCE SHE IS AWAKE AFTER USING THE BSC. SHE DENIES PAIN AND SOB. SHE STATES SHE FEELS GREAT. PT TALKS ABOUT WANTING HELP GOING THROUGH HER CLOTHES, AND FINDING A PLACE TO GO UPON DC. SHE STATES SHE WILL HAVE A PLACE TO GO NO MATTER WHAT. PT DENIES NEEDS AT THIS TIME. CALL LIGHT IS CLOSE.
--- NOTE | 2021-03-04 04:26 | NUR ---
WALKED PAST PT'S DOOR SHE CALLED OUT, UPON ENTERING ROOM PT IS ASKING FOR MORE WATER. SHE HAS FLUID LEFT IN HER FLUID RESTRICTION, [facility] IS BRINGING HER SOME MODERATELY THICKENED WATER.
--- NOTE | 2021-03-04 04:51 | NUR ---
PT PRESSING CALL LIGHT BY ACCIDENT, TRYING TO GET THE TV TURNED ON, ASSISTED PT, PT THEN ASKED ABOUT GETTING SOME MORE EGG SALAD, NONE AVALBLE, NO FURTHER NEEDS
--- NOTE | 2021-03-04 05:36 | NUR ---
PT IS AWAKE IN BED WATCHING TV, LAB WAS JUST IN ROOM TO DRAW BLOOD. PT HAS THE MENU AND IS THINKING ABOUT WHAT SHE WANTS TO EAT FOR BREAKFAST. SHE IS STILL THINKING ABOUT IT AND WILL LET US KNOW WHEN SHE WANTS TO PLACE HER ORDER. ADMINISTERED PROTONIX, CALL LIGHT IS CLOSE AND PT DENIES FURTHER NEEDS. BED ALARM IS ON.
--- NOTE | 2021-03-04 08:30 | NUR ---
REPORT RECEIVED FROM NIGHT RN AND PT. CARE RESUMED. PT. IS ALERT AND ORIENTED TO SELF AND PLACE. FORGETFUL AND CONFUSED AT TIMES. +1 EDEMA PRESENT IN LLE. LEGS ELEVATED. PT. HAS A PRODUCTIVE COUGH AND IS ON ROOM AIR. IV SITE WNL AND FLUSHES WELL. DAUGHTER IN LAW IN THE ROOM. DISCUSSED MEDS AND POC. PT. LEFT RESTING IN THE CHAIR EATING BREAKFAST.
--- NOTE | 2021-03-04 10:10 | NUR ---
PATIENT TO BED FROM CHAIR, 1PA FWW. DAUGHTER IN LAW IN ROOM. LINENS CHANGED. VITALS AND I&O'S CHARTED. CALL LIGHT IN REACH. NO FURTHER NEEDS AT THIS TIME.
--- NOTE | 2021-03-04 14:00 | NUR ---
PT. BACK TO BED. SHE IS SWALLOWING WELL WITH P.O. TABS AND COMPLIANT WITH FLUID RESTRICTION. SHE DENIES PAIN AT THIS TIME. ORIENTED TO SELF AND PLACE. DISCUSSED MEDS AND SAFETY. PT. LEFT RESTING WITH CALL LIGHT IN REACH AND ALARM ON.
--- NOTE | 2021-03-04 15:21 | NUR ---
PATIENT UP TO BATHROOM THEN TO SHOWER CHAIR, 1PA FWW. SHOWER DONE. OLEG CARE, SKIN CARE, SHAMPOO DONE. NEW GOWN AND ATTENDS IN PLACE. PATIENT THEN TO BED, 1PA FWW. SON IN ROOM AT THIS TIME. VITALS AND I&O'S CHARTED. CALL LIGHT IN REACH. NO FURTHER NEEDS AT THIS TIME.
--- NOTE | 2021-03-04 16:46 | NUR ---
PT. USED CALL LIGHT APPROPRIATELY TO REPORT HEAD PAIN. SHE ASKED "CAN YOU COVER UP THE KNOT ON THE TOP OF MY HEAD?" NO BUMP FOUND WHEN SHE POINTED. THERE CONTINUES TO BE A SCAB ON THE BACK OF HER SCALP. SHE STATES IT IS PAINFUL, BUT REFUSES PAIN MED. WILL CONTINUE TO MONITOR.
--- NOTE | 2021-03-04 18:07 | NUR ---
PATIENT TO BATHROOM THEN TO BED FROM FROM, 1PA FWW. VITALS AND I&O'S CHARTED. BED ALARM ON. FRESH WATER GIVEN. CALL LIGHT IN REACH. NO FURTHER NEEDS AT THIS TIME.
--- NOTE | 2021-03-04 19:26 | NUR ---
In bed no c/o pain, clm, visiting with family in room
--- NOTE | 2021-03-04 19:40 | NUR ---
IN TO PROVIDE PT PUDDING PER PT REQUEST, RN TO FOLLOW WITH PM MEDS, VITALS TAKEN, BP IS LOW THIS EVENING, RN AWARE AND BP TO BE RECHECKED IN AN HOUR, NO FURTHER NEEDS AT THIS TIME
--- NOTE | 2021-03-04 20:20 | NUR ---
BP RECHECKED WITH RN, SUTABLE BP OBTAINED, NO FURTHER NEEDS
--- NOTE | 2021-03-04 20:45 | NUR ---
Coop with assessment. On room air, lungs dim at bases, da, trace edema at ankles, elevated, helped with repositioning in bed. tolerating fluid restriction well. no c/o pain, received 25mg trazadpone per insomnia, as per no vitals between [id number]. pt cooperative, bed alarm on,
--- NOTE | 2021-03-04 23:13 | NUR ---
RESTING, EYES CLOSED, NO DISTRESS, RESP EVEN AND UNLABORED, HOB ELEVATED, BED ALARM ON,
--- NOTE | 2021-03-05 05:13 | NUR ---
pT RECEIVED TRAZADONE PER INSOMNIA, EFFECTIVE, HAS SLEPT ALL NIGHT. NO DISTRESS, ON ROOM AIR. PAINFUL TO REPOSITIOONS. HAS TOLERATED LIQUIDS RESTRICTION WELL, SL PATENT. LEGS ELEVATED. PLEASANTLY CONFUSED, EASILY REDIRECTABLE.
--- NOTE | 2021-03-05 06:54 | NUR ---
awakes easily, no c/o pain, sba, tolerated well, up to standing scale for daily weight of 61.3kg. back to bed, repositioned to comfort, hob elevated. was incontinent of urine x2. cooperative. fall and aspiration precautions in place
--- NOTE | 2021-03-05 07:45 | NUR ---
REPORT RECEIVED FROM NIGHT RN AND PT. CARE RESUMED. PT. IS ALERT AND PLEASANT THIS MORNING. SHE IS GROWLING AND STATES SHE IS TRYING TO BE FEROCIOUS. ORIENTED TO SELF ONLY. SHE STATES SHE SLEPT WELL. TRACE EDEMA IN LLE. IV SITE WNL AND FLUSHES WELL. MORNING MEDS GIVEN. DISCUSSED POC AND PT. LEFT RESTING WITH CALL LIGHT IN REACH.
--- NOTE | 2021-03-05 10:02 | NUR ---
98/53 is patient B/P. Resperations is 28. Call light is in reach.
--- NOTE | 2021-03-05 11:01 | NUR ---
ROUNDING ON PT. SHE IS RESTING WITH EYES CLOSED IN THE CHAIR AND FAMILY MEMBER IN THE ROOM.
--- NOTE | 2021-03-05 11:54 | NUR ---
Patient's tailbone is hurting. Repositioned patient onto her left side in bed and she seems to be having some relief. Utilized FWW to bed, 1PA.
--- NOTE | 2021-03-05 12:54 | NUR ---
I was able to meet with Cynthia and her [id number] Alexey this morning. Alexey is the primary person currently caring for Cynthia. Both Cynthia and Alexey agree that Cynthia needs to be discharged to a SNF for rehab, with the eventual goal of being placed in an assisted living facility with memory care. Currently, due to either staffing issues, or Covid, we have been unable to find placement for Cynthia. [facility] has agreed to accept the patient, but currently cannot do further admissions, this is to be re-evaluated Monday. Message left with [facility] to see if they can now take admissions. Patient and Alexey report that they are extremely happy with her care, and feel that the staff members have been "amazing" and "so kind." They stated that "everyone is so helpful, all the therapists, nurses, and doctors."
--- NOTE | 2021-03-05 16:20 | NUR ---
PT. C/O OF A HEADACHE. ADMIN TYLENOL. FAMILY IN THE ROOM. PT. BROUGHT THICKENED WATER. LEFT RESTING WITH CALL LIGHT IN REACH.
--- NOTE | 2021-03-05 19:28 | NUR ---
pt requesting to have a pillow under her left hip, to help her get off her tailbone, no further needs
--- NOTE | 2021-03-05 20:07 | NUR ---
pt requested repositioning. Pillow remains under left side hip. Pt states comfort.
--- NOTE | 2021-03-05 20:30 | NUR ---
HOB [facility], on thickened liquids, meds given with pudin, tolerated well, aspiration precautions in place. trazadone 25mg po given per insomnia. repositioned in bed. attends changed, incontinent of urine. legs elevated, 1+ edema ankles/fee, multiple bruised areas over arms, abd and legs. L back of head scabbed area dry. pt pleasantly confused. cooperative. attedns in place, floating in pillows to [facility]
--- NOTE | 2021-03-05 21:30 | NUR ---
pt calling, needed to get up to the toilet for a bm, pt bck to bed, no further needs at this time
--- NOTE | 2021-03-05 22:21 | NUR ---
pt sitting up now, states that she is hungry, rena joya provided, pt talks about her son coming back tonight to sit with her, no further needs at this time
--- NOTE | 2021-03-05 22:48 | NUR ---
pt is still feeling hungry, kiara pudding provided
--- NOTE | 2021-03-05 23:18 | NUR ---
repositioned in bed, le elevated. c/o tay and back pain. medicated with tylenol 650mg po. initial 25mg of trazadone not effective, second half dose given. trazadone 25mg po per insomnia
--- NOTE | 2021-03-06 00:50 | NUR ---
RESTING, HOB ELEVATED TO COMOFRT, ON ROOM AIR, RESP EVEN, UNLABORED, SECOND DOSE OF TRAZADONE 25MG EFFECTIVE. BED ALARM ON.
--- NOTE | 2021-03-06 02:33 | NUR ---
RESTING, NO DISTRES, BED ALARM IN PLACE
--- NOTE | 2021-03-06 04:56 | NUR ---
PT RECEIVED 2 DOSES OF TRAZADONE 25MG, SECOND DOSE EFFECTIVE. PLEASANTLY CONFUSED, EASILY REDIRECTABLE, INCONTINENT OF URINE, ATTENDS IN PLACE, HAD BM. TURNED AND REPOSITION TO COMOFRT, BRUISING OVER ARMS, ABD AND LEGS IMPROVING. L BACK OF HEAD SCABBED OVER AREA. C/O H/A, MEDICATED WITH TYLENOL.ASPIRATION AND FALL PRECAUTIONS IN PLACE. TOLERATING FLUID RESTRICTION AND THICKENED LIQUIDS. DAILY WEIGHT. SL PATENT, DOES NOT USE CALL LIGHT.
--- NOTE | 2021-03-06 06:37 | NUR ---
awakes easily, coop with meds and blood draw. repositioned in bed
--- NOTE | 2021-03-06 07:04 | NUR ---
lab unable to obtain blood after several tries, will try again later. up to edge of bed, daily weight 63.6 kg. was incontinent of urine. clean attends, skin care. back to bed. tolerating fluids restriction well. hob elevated, fall and aspiration precautions inplace, pt cooperative
--- NOTE | 2021-03-06 07:45 | NUR ---
REPORT RECEIVED FROM NIGHT RN AND PT. CARE RESUMED. PT. IS DROWSY BUT EASILY AWAKENS TO VOICE. LUNGS DIM. IN RLL. ORIENTED TO SELF AND PLACE. IV SITE FLUSHES WELL. PT. AMBULATED WITH FWW AND SBA TO THE CHAIR FOR BREAKFAST. MILK THICKENED AND PT. SWALLOWED PO MEDS WITHOUT COUGHING OR DIFFICULTY. SHE DENIES PAIN AT THIS TIME. EDEMA PRESENT BLE. DISCUSSED POC AND SAFETY. PT. LEFT EATING BREAKFAST WITH CHAIR ALARM ON AND CURTAIN OPEN. CALL LIGHT IN REACH.
--- NOTE | 2021-03-06 07:50 | NUR ---
PATIENT UP TO CHAIR FOR BREAKFAST, SBA FWW. RN IN ROOM AT THIS TIME. WARM WASHCLOTH GIVEN. CALL LIGHT IN REACH. NO FURTHER NEEDS AT THIS TIME.
--- NOTE | 2021-03-06 09:03 | NUR ---
PATIENT UP TO BATHROOM FROM CHAIR, SBA FWW. PATIENT REFUSED SHOWER, PARTIAL BED BATH GIVEN. OLEG CARE, SKIN CARE, AM CARE DONE. NEW ATTENDS AND GOWN PROVIDED. ORAL CARE DONE AT SINK. LINENS CHANGED. PATIENT BACK TO CHAIR, SBA FWW. VITALS AND I&O'S CHARTED. CALL LIGHT IN REACH. CHAIR ALARM ON. NO FURTHER NEEDS AT THIS TIME.
--- NOTE | 2021-03-06 10:55 | NUR ---
PT. C/O HEARTBURN AND HAS HER HAND OVER LEFT CHEST. SHE STATES PAIN IS NOT RADIATING AND "JUST FEELS LIKE HEARTBURN". MAALOX ORDERED BY CHARGE. WILL CONTINUE TO MONITOR.
--- NOTE | 2021-03-06 14:20 | NUR ---
PT. HAS AMBULATED AROUND THE UNIT TWICE TODAY AND REPORTS FEELING STRONGER. DRY, FREQUENT COUGH. COMPLIANT WITH FLUID RESTRICTION. +1 EDEMA BLE. IV SITE WNL. PT. IS ALERT AND ORIENTED TO SELF. SHE AMBULATED WITH FWW AND SBA TO THE BATHROOM AND BACK. TOLERATED WELL. ASSISTED WITH REPOSITIONING IN BED AND LEFT RESTING WITH CALL LIGHT IN REACH.
--- NOTE | 2021-03-06 18:12 | NUR ---
PATIENT TO BATHROOM AND THEN TO BED, SBA FWW. VITALS AND I&O'S CHARTED. CALL LIGHT IN REACH. NO FURTHER NEEDS AT THIS TIME.
--- NOTE | 2021-03-06 18:25 | NUR ---
PLASTICS HEAT WELDER REPORTS PT. HAS NOT VOIDED IN FOUR HOURS. THIS NURSE SPOKE WITH PATIENT AND HE STATES HE WILL TRY TO VOID. PT. TOLD THAT IF HE IS UNABLE TO VOID IN THE NEXT 30 MINUTES WE WILL BLADDER SCAN HIM. PT. ALSO C/O RETURNING ABDOMINAL PAIN AND ASKS FOR DILAUDID WHEN AVAILABLE. WILL ADMIN. WHEN DUE.
--- NOTE | 2021-03-06 20:25 | NUR ---
REPOSITIONED IN BED, DRY ATTNDS, PLEASANTLY CONFUSED, TOLERATING THICKENED LIQUIDS AND FLUIDS REASTRICTIONS. TOOK MEDS WITH PUDIN AND RECEIVED TYLENOL PER C/O L BACK ANDR SIDE, AND COCYX AREA. MEDICATED WITH TRAZADONE 2MG PO INSOMNIA. BED ALARM ON, FALL AND ASPIRATION PRECAUTIONS IN PLACE. PT DOES NOT USE NURSE CALL LIGHT.FAMILY AT BEDSIDE
--- NOTE | 2021-03-06 22:12 | NUR ---
up to br, voided clear yellow urine, [plus incontinent in urine in attends. back to be sob with exertion noted. spot sats 90%, R26, P112, on room air. SBA, FWW, pleasant and coop. hob elevated to her comfort. tolerating sips of fluids
--- NOTE | 2021-03-06 23:16 | NUR ---
USED CALL LIGHT, UP TO BR, VOIDED, HAD SMEAR OF SOFT BM, BACK TOBED, TOLERATED VERY WELL. NO C/O PAIN. BED ALARM ON, HELPED WITH REPOSITIONING AND WENT BACK TO SLEEP RIGHT AWAY
--- NOTE | 2021-03-07 00:50 | NUR ---
BED ALARM GOING OFF, TRYING TO CRAWL OUT OF BED. UP TO BR, VOIDED AND HAD A LARGE SOFT BM. BACK TO BED, SBA/FWW. GOES BACK TO SLEEP RIGHT AWAY. REPOSITIONED IN BED, LEGS ELEVATED
--- NOTE | 2021-03-07 03:07 | NUR ---
LAYING ON HER L SIDE, HOB ELEVATED, RESTING, EYES CLOSED, NO DISTRESS, BED ALAMR ON
--- NOTE | 2021-03-07 05:04 | NUR ---
up to br, voided plus she was incontinent of urine, back to bed
--- NOTE | 2021-03-07 05:31 | NUR ---
PT ON ROOM AIR, DIM AT BASES. SOB NOTED WHEN UP TO BR. SBA/FWW, HAS VOIDED QS AND HAS HAD SEVERAL SOFT BM'S. INCONTINENT OF URINE, SKIN BARRIER AND ATTENDS IN PLACE. SL PATENT. PLEASANTLY CONFUSED, FOLLOWS INSTRUCTIONS. MULTIPLE BRUISING AREAS OVER BACK, ARMS, ABD AND HIPS. SCABBED OVER AREA BEHIND L HEAD. LEGS 1+ EDEMA, ELEVATED. TOLERATING THICKENED LIQUIDS, FLUIDS RESTRICTION. FALL AND ASPIRATION PRECAUTIONS IN PLACE. DOES HAVE MOIST NON PRODUCTIVE COUGH AT TIMES
--- NOTE | 2021-03-07 06:36 | NUR ---
C/O 5/10 L H/A, BACK AND HIPS PAIN, MEDICATED WITH TYLENOL, INCREEASED MOIST COUGH NOTED AFTER DRINKING THICKENED LIQUIDS. THICK YELLOW PHLEGM EXPECTORATED. HOB ELEVATE TO COMFORT, ASPIRATION PRECAUTIONS IN PLACE, REMINDED OF TUCK CHIN DOWN, COOPERATIVE
--- NOTE | 2021-03-07 07:45 | NUR ---
REPORT RECEIVED FROM NIGHT RN AND PT. CARE RESUMED. PT. IS ALERT AND ORIENTED TO SELF ONLY, BUT PLEASANT. AMBULATED WITH SBA AND FWW TO THE BATHROOM AND HAD A SOFT BM AND VOIDED 200ML. LUNGS DIM. IN LLL. IV SLUGGISH BUT NO INFLAMMATION OR PAIN. TRACE EDEMA PRESENT BLE. PT. UP TO THE CHAIR FOR BREAKFAST. DISCUSSED MEDS AND POC. PT. LEFT RESTING WITH CHAIR ALARM ON, CALL LIGHT IN REACH AND CURTAIN OPEN.
--- NOTE | 2021-03-07 20:17 | NUR ---
SL LW PATENT. ON ROOM AIR, SOB WITH EXERTION, INCONTINENT OF URINE, ATTENDS CHANGED, SKIN CARE, COOP. PLEASANTLY CONFUSED. ON ROOM AIR, LUNGS DIM AT BASES. SOB WITH EXERTION. HELPED WITH REPOSITIONING, LEGS ELEVATED 1+ EDEMA AT ANKLES/FEET. HOB ELEVATED TO COMOFRT. ASPIRATION AND FALL PRECAUTIONS INPLACE. BED ALARM. COOP WITH ASSESSMENT. C/O L BACK OF HEAD AND BACK PAIN, MEDICATED WITH TYLENOL, C/O UPSET STOMACH, MAALOX GIVEN, C/O INSOMNIA "I DID NOT SLEPT WELL LAST NIGHT", MEDICATED WITH TRAZADONE 25MG, MAY REPEAT 25MG IF NEEDED PER ORDERS. TOLERATING THICKENED FLUID RESTRICTION WELL
--- NOTE | 2021-03-08 00:07 | NUR ---
resting, no distress, eys closed. bed alarm on
--- NOTE | 2021-03-08 02:22 | NUR ---
resting, on room air, no distress, bed alarm on.
--- NOTE | 2021-03-08 03:39 | NUR ---
resting, no distress, bed alarm on, fluids and call light at hands reach
--- NOTE | 2021-03-08 04:09 | NUR ---
Up to br, voided, was incontinent of urine abd had a liquid brown bm. skin care, back to bed, sob with exertion , sasts 96%, resp 26, p112. lungs dim at bases. hob elevated, aspiration and fall precaution in place. daily standing weight 62.3kg. Continues to have moist productive hacky cough.thick phlegm goes back to sleep right away
--- NOTE | 2021-03-08 05:11 | NUR ---
ON ROOM AIR, DIM LUNG SOUND BILAT, MOIST PRODUCTIVE COUGH PRESENT, SOB WITH EXERTION PRESENT, SBA/FWW, UP TO BR TO VOID AND INCONTINENCE OF BOWEL AND BLADDER IN ATTENDS. LEGS ELEVATED, EDEMA 1+. SL PATENT. TOLERATING THICKENED LIQUID FLUID RESTRICTION. MEDICATED PER C/O ABD DISCOMFOR AND BACK OF HEAD AND BACK PAIN. BRUISING OVER ALL BODY HEALING. PLEASANTLY CONFUSED. BED ALARM ON. SAFETY REASSURED AND ALL PROCEDURES EXPLAINED, COOPERATIVE. ASPIRATION AND FALL PRECAUTIONS IN PLACE. WAITING FOR PLACEMENT
--- NOTE | 2021-03-08 08:12 | NUR ---
PT RESTING EYES CLOSED AT TIME OF SHIFT EXCHANGE. UP TO THE CHAIR SBA WITH FWW. PT C/O THIRST JUICE AND H20 PROVIDED. BREAKFAST SERVED.
--- NOTE | 2021-03-08 09:27 | NUR ---
LEFT MESSAGE FOR BRENDAN NOVAK, [facility] AND [facility] TO SEE IF ANY HAVE ABILITY TO ADMIT TODAY. RECEIVED MESSAGE BACK QUICKLY FROM FRANKI AT [facility] AND THEY CANNOT ACCEPT PATIENTS STILL. THEY WILL REEVALUATE IN 2-3 DAYS.
--- NOTE | 2021-03-08 09:45 | NUR ---
NO ANSWER YET FROM [facility]. JOSE ANGEL AT [facility] RESPONDED AND THEY ARE ACCEPTING PATIENTS TODAY. SHE RECEIVED INITIAL CHART REFERRAL LAST MONDAY. SHE REQUESTS UPDATED NOTES.
--- NOTE | 2021-03-08 10:14 | NUR ---
SPOKE WITH PATIENT AND DIL IN ROOM. PATIENT IS UP IN CHAIR. VISITING WITH STAFF. PATIENT IS AWARE THAT REHAB IS BEING ARRANGED. DISCUSSED THAT [facility] IN [place] IS POSSIBLE, [facility] IS OUT AND STILL WAITING ON [facility]. SHE AND JUDIE BOTH WOULD LIKE [place] IF POSSIBLE. JUDIE IS CALLING HER WHO IS POA TO MAKE SURE HE IS OK WITH THIS, TOO. CHART UPDATE WAS FAXED AND RECEIVED CONFIRMATION AT 1001 FOR ROSSY.
--- NOTE | 2021-03-08 10:28 | NUR ---
PATIENT IN BATHROOM WITH PT AT THIS TIME. DAUGHTER IN LAW IN ROOM. LINENS CHANGED. VITALS TAKEN BY RN EARLIER. I&O'S CHARTED. CALL LIGHT IN REACH. NO FURTHER NEEDS AT THIS TIME. PATIENT REFUSED SHOWER, WILL TRY AGAIN LATER.
--- NOTE | 2021-03-08 10:33 | NUR ---
PT UP TO THE CHAIR FOR MORNING MEAL, FAMILY ARE PRESENT. DC SEAM PRESS OPERATOR IN TO ASSIST WITH PLACEMENT PT AND VISITOR ENGAGING IN THE CONVERSATION SON HAS BEEN CONTACTED AND NOTIFIED OF PLAN
--- NOTE | 2021-03-08 10:58 | NUR ---
[facility] WILL BE ACCEPTING PATIENT. REQUESTS A NEW COVID SWAB. UPDATED STAFF AND MD.
--- NOTE | 2021-03-08 11:15 | NUR ---
both nares swabbed for covid-19 without complication. sample taken to lab.
--- NOTE | 2021-03-08 12:30 | NUR ---
ORDERS FAXED TO FACILITY. JOSE ANGEL AT [facility] HAS GIVEN THEM TO NURSING.
--- NOTE | 2021-03-08 13:00 | NUR ---
PT UP TO THE TOILET SBA DOES WELL. RETURNS TO CHAIR, CONTINUES VISITING WITH FAMILY. ANTICIPATE DC LATER TODAY, BOTH PT AND FAMILY DENY QUESTIONS OR CONCERNS
--- NOTE | 2021-03-08 13:09 | NUR ---
PATIENT UP TO BATHROOM AND THEN TO BED, 1PA FWW. DAUGHTER IN LAW IN ROOM. VITALS AND I&O'S CHARTED. CALL LIGHT IN REACH. NO FURTHER NEEDS AT THIS TIME.
[2021-03-08] MEDS ORDERED: TRAZODONE HCL50 MG PO (13:12)
[2021-03-08] MEDS ORDERED: TORSEMIDE20 MG PO (13:12)
[2021-03-08] MEDS ORDERED: TORSEMIDE5 MG PO (13:12)
--- NOTE | 2021-03-08 14:00 | NUR ---
SPOKE WITH PATIENT AND [id number] TO UPDATE THAT [facility] HAS ACCEPTED PATIENT FOR ADMIT TODAY. [id number] STATES SHE CAN TRANSPORT. QUESTIONS ANSWERED. THEY HAVE A GOOD GRASP ON COST, INSURANCE ETC. STATE SHE WOULD LIKE TO RUN HOME AND GET SOME THINGS, AND CAN TRANSPORT BETWEEN 3:00-3:30PM. STAFF UPDATED. REMINDED STAFF TO MAKE SURE REPORT GETS CALLED BY [facility]. SHE WAS ON LUNCH AT THIS TIME. JOSE ANGEL AT [facility] UPDATED.
--- NOTE | 2021-03-08 15:12 | NUR ---
PT DRESSED AND READY FOR TRANSPORT. SL REMOVED SITE UNREMARKABLE. REPORT CALLED TO WBT RN. PT DENIES DISCOMFORTS, QUESTIONS, OR NEEDS
== END 2021-03-08 15:20 | disposition home or self-care (01) | DRG 292 ==
LOC: ED 07:49 → MS 11:32
PROVIDERS: ADMIT Internal Medicine; ATTEND Internal Medicine
DX: I50.23 Acute on chronic systolic (congestive) heart failure (principal); I47.1 Supraventricular tachycardia; F05 Delirium due to known physiological condition; I25.10 Atherosclerotic heart disease of native coronary artery without angina pectoris; E78.5 Hyperlipidemia, unspecified; D50.9 Iron deficiency anemia, unspecified; Z66 Do not resuscitate; Z20.822 Contact with and (suspected) exposure to COVID-19; K21.9 Gastro-esophageal reflux disease without esophagitis; R13.12 Dysphagia, oropharyngeal phase; E87.6 Hypokalemia; G30.9 Alzheimer's disease, unspecified; Z96.612 Presence of left artificial shoulder joint; F32.9 Major depressive disorder, single episode, unspecified; F02.80 Dementia in other diseases classified elsewhere, unspecified severity, without behavioral disturbance, psychotic disturbance, mood disturbance, and anxiety; F39 Unspecified mood [affective] disorder; G25.81 Restless legs syndrome; I25.2 Old myocardial infarction; Z95.5 Presence of coronary angioplasty implant and graft; Z79.82 Long term (current) use of aspirin; Z79.899 Other long term (current) drug therapy
CPT/HCPCS: 70450; 71045; 72170; 80048; 80053; 80500; 81001; 83735; 83880; 84100; 84484; 85025; 92526; 93005; 93010; 93306; 97110; 97116; 97162; 97166; 97530; 97535; 99285-25; C9803; J1650; J1940; J2405; J3475; J3480; J7060; J7121; U0003

== ENCOUNTER 2021-09-29 15:39 | Emergency (ER) | payer MEDICARE, OTHER ==
[~2021-09-29] VITALS: Ht 152.4 cm; Wt 62.1 kg
[~2021-09-29 15:39] MED LIST: ASPIRIN81 MG PO; BRILINTA90 MG PO; CITALOPRAM HBR20 MG PO; CO Q-10200 MG PO; DONEPEZIL HCL5 MG PO; KLOR-CON 1010 MEQ PO; LASIX20 MG PO; LIPITOR40 MG PO; LISINOPRIL2.5 MG PO; LO-DOSE ASPIRIN81 MG PO; MIRTAZAPINE15 MG PO; NITROGLYCERIN0.4 MG SL; OMEPRAZOLE20 MG PO; REMERON15 MG PO; ROPINIROLE HCL1 MG PO; TOPROL XL25 MG PO; TORSEMIDE20 MG PO; TORSEMIDE5 MG PO; TRAZODONE HCL50 MG PO; TYLENOL EXTRA500 MG PO; VITAMIN D350 MC3 PO
--- NOTE | 2021-09-29 18:25 | EKG ---
[facility] [address] [facility] [facility] [place] [address] Signed Normal sinus rhythm Left anterior fascicular block Inferior infarct (cited on or before 25-FEB-2021) Anterolateral infarct (cited on or before 25-FEB-2021) Abnormal ECG When compared with ECG of 25-FEB-2021 08:27, premature supraventricular complexes are no longer present ST no longer depressed in Inferior leads Inverted T waves have replaced nonspecific T wave abnormality in Lateral leads Confirmed by SHANAE NAVARRETE MD ([id number]) on 09/29/2021 6:25:19 PM Electronically Signed By: SHANAE NAVARRETE MD 09/29/21 1825 PATIENT NAME: BRISSA COATES Electrocardiogram DATE OF : 41 PHYSICIAN: SHANAE NAVARRETE MD REPORT #: [id number] REPORT IS CONFIDENTIAL AND NOT TO BE RELEASED WITHOUT AUTHORIZATION
== END 2021-09-29 19:22 | disposition home or self-care (01) ==
LOC: ED 15:39
DX: I50.9 Heart failure, unspecified (principal); I42.9 Cardiomyopathy, unspecified; I25.2 Old myocardial infarction; Z79.899 Other long term (current) drug therapy; Z79.82 Long term (current) use of aspirin
CPT/HCPCS: 36415; 71045; 80053; 83880; 84484; 85025; 96374; 99285-25; J1940

== ENCOUNTER 2022-03-17 19:02 | Emergency (ER) | payer MEDICARE, OTHER ==
[~2022-03-17] VITALS: Ht 152.4 cm; Wt 68.6 kg
== END 2022-03-17 23:07 | disposition home or self-care (01) ==
LOC: ED 19:02
DX: R04.0 Epistaxis (principal); I50.9 Heart failure, unspecified; Z79.899 Other long term (current) drug therapy; Z79.82 Long term (current) use of aspirin
CPT/HCPCS: 36415; 80048; 85025; 85610; 85730

== ENCOUNTER 2022-03-31 16:54 | Emergency (ER) | payer MEDICARE, OTHER ==
[~2022-03-31] VITALS: Ht 152.4 cm; Wt 67.5 kg
--- OUTSIDE RECORDS SUMMARY | 2022-03-31 17:01 | XMS ---
PreManage Notification: BRISSA COATES Security Deputy General Counsel Events No recent Security Events currently on file CRITERIA MET - [facility] - 2 Visits in 30 Days CARE PROVIDERS MARTHA VALENTINE Front Desk Attendant Current TRISHA Caro PHONE: [phone] TRISTA FELIZ Internal Medicine Current PHONE: [phone] JAK GARNETT Nurse Practitioner Current PHONE: [phone] Joellen Foster Panel Machine Setter/Auto Winder 10/10/2021-Current PHONE: [phone] PAULA GARCIA Nurse Practitioner: Family Current PHONE: Unknown ZENIA BENITEZ Internal Medicine Current PHONE: [phone] BART SANTO Senior Research Executive Current JASMIN PHONE: Unknown Aurea Tong Community Health Worker 12/18/2020-Current PHONE: [phone] DIONNE PACE Nurse Practitioner Current PHONE: [phone] VIOLA SIMS I. Physician Senior Research Executive Current PHONE: Unknown [facility] Internal Medicine 02/25/2021-Current PHONE: Unknown JOSE Nurse Practitioner Abeba URENA PHONE: [phone] ISHMAEL [facility] Current PHONE: [phone] MICHAEL MCKAY Physician Senior Research Executive Current PHONE: Unknown Edna has no Care Guidelines for this patient. Care History Medical/Surgical 02/25/2021 [facility] - Patient is currently established with [facility]. If patient is seen in the ED during business hours. Please contact CHWs at [facility]. Care Recommendation: If this patient has had 5 or more Emergency Department visits in the last 12 months.\T\nbsp; Patient will require education on the scope and purpose of the ED as an acute care provider not a Primary Care Provider and should not be utilized for chronic conditions.\T\nbsp; These are guidelines and the provider should exercise clinical judgment when providing care. E.D. VISIT COUNT (12 MO.) 3 [facility] TOTAL 3 NOTE: Visits indicate total known visits. ED/UCC VISIT TRACKING (12 MO.) 03/31/2022 16:54 [facility] TYPE: Emergency COMPLAINT: - NOSE BLEED 03/17/2022 19:03 [facility] [place] TYPE: Emergency COMPLAINT: - NOSE BLEED 09/29/2021 15:40 [facility] [place] TYPE: Emergency COMPLAINT: - DIFFICULTY BREATHING DIAGNOSES: - Heart failure, unspecified - Cardiomyopathy, unspecified - rn long term care (current) use of aspirin - Old myocardial infarction - Other half-way (current) drug therapy - Dyspnea, unspecified INPATIENT VISIT TRACKING (12 MO.) No inpatient visits to display in this time frame [email or web address]
== END 2022-03-31 21:35 | disposition home or self-care (01) ==
LOC: ED 16:54
DX: R04.0 Epistaxis (principal); Z99.81 Dependence on supplemental oxygen; I50.9 Heart failure, unspecified; I25.2 Old myocardial infarction; Z79.899 Other long term (current) drug therapy; Z79.82 Long term (current) use of aspirin; Z95.5 Presence of coronary angioplasty implant and graft
CPT/HCPCS: 36415; 80053; 85025; 85610

== ENCOUNTER 2024-06-08 05:32 | Emergency (ER) | payer MEDICARE, OTHER ==
[~2024-06-08] VITALS: Ht 157.5 cm; Wt 75.7 kg
[~2024-06-08 05:32] MED LIST changes: +DONEPEZIL HCL23 MG PO; +FAMOTIDINE20 MG PO; +HYDROCODON-ACE1 EA10 PO; +MELOXICAM7.5 MG PO; +SERTRALINE HCL50 MG PO; +VALSARTAN40 MG PO
[2024-06-08 05:52] LABS: BASOPHILS 1.1 % (0-2); HEMATOCRIT 37.5 % (35.0-50.0); HEMOGLOBIN 12.2 g/dL (12.0-18.0); MCH 29.7 (27-36); MCHC 32.5 g/dl (30-36); MCV 91.3 fl (81-99); MONOCYTES 7.1 % (0-12); NEUTROPHILS 54.8 % (39-80); PLATELET COUNT 251 K/uL (140-440); RDW 14.8 (10.5-15.0)
[2024-06-08 06:06] LABS: ALBUMIN 3.6 g/dL (3.4-5.0); ALBUMIN/GLOBULIN RATIO 0.86 (1.1-2.4); ALCOHOL, MEDICAL <3 ng/dL (<3); ALKALINE PHOSPHATASE 112 U/L (46-116); ALT (SGPT) 25 U/L (14-59); ANION GAP 14.2 (7-21); AST (SGOT) 23 U/L (15-37); BILIRUBIN, TOTAL 0.3 ng/dL (0.2-1.0); BUN/CREATININE RATIO 26.71 (6.0-28.6); CARBON DIOXIDE 25 mmol/L (21-32); CHLORIDE 106 mmol/L (98-107); CREATININE, SERUM 1.31 mg/dL (0.55-1.02); GLOMERULAR FILTRATION RATE,EST 41 mL/min (>60); POTASSIUM 4.2 mmol/L (3.5-5.1); PROTEIN, TOTAL 7.8 g/dL (6.4-8.2); UREA NITROGEN 35 mg/dL (7-18)
[2024-06-08] MEDS ORDERED: TRANEXAMIC ACID IN NACL,ISO-OS 1,000 MG/100 ML PIGGYBACK IV ONE (06:30)
[2024-06-08 06:45] LABS: ABO A; ANTIBODY SCREEN NEGATIVE; RH NEGATIVE
[2024-06-08] MEDS ORDERED: DIPHTH,PERTUSS(ACELL),TET VAC 0.5 ML SYRINGE IM ONE (07:15)
[2024-06-08 07:35] VITALS: BP 119/64
--- NOTE | 2024-06-08 11:30 | EKG ---
[facility] [address] [facility] [place] [address] Signed Sinus bradycardia Left anterior fascicular block Possible Inferior infarct (cited on or before 25-FEB-2021) Anteroseptal infarct (cited on or before 25-FEB-2021) T wave abnormality, consider lateral ischemia Abnormal ECG When compared with ECG of 29-SEP-2021 16:18, Vent. rate has decreased BY 28 BPM Questionable change in initial forces of Septal leads Questionable change in initial forces of Lateral leads Inverted T waves have replaced nonspecific T wave abnormality in Anterior leads Confirmed by Rodolfo Ruiz MD ([id number]) on 06/08/2024 11:30:24 AM Electronically Signed By: RODOLFO RUIZ 06/08/24 1130 PATIENT NAME: BRISSA COATES Electrocardiogram DATE OF : 41 PHYSICIAN: RODOLFO RUIZ REPORT #: [id number] REPORT IS CONFIDENTIAL AND NOT TO BE RELEASED WITHOUT AUTHORIZATION
== END 2024-06-08 07:35 | disposition home or self-care (01) ==
LOC: ED 05:32
PROVIDERS: Internal Medicine
DX: S01.01XA Laceration without foreign body of scalp, initial encounter (principal); W06.XXXA Fall from bed, initial encounter; I50.9 Heart failure, unspecified; I25.2 Old myocardial infarction; F03.90 Unspecified dementia, unspecified severity, without behavioral disturbance, psychotic disturbance, mood disturbance, and anxiety; Z23 Encounter for immunization; Z79.899 Other long term (current) drug therapy; Z79.82 Long term (current) use of aspirin
CPT/HCPCS: 12001; 36415; 70450; 72125; 80053; 80307; 83880; 84484; 85025; 86850; 86900; 86901; 90471; 90715; 93005; 93010; 99284-25; G0480

== ENCOUNTER 2024-07-16 17:52 | Emergency (ER) | payer MEDICARE, OTHER ==
[~2024-07-16] VITALS: Ht 157.5 cm; Wt 73.0 kg
[2024-07-16] MEDS ORDERED: ALBUTEROL/IPRATROPIUM 3 ML NEB INH PRN (18:45)
[2024-07-16 18:49] LABS: BASOPHILS 0.8 % (0-2); EOSINOPHILS 1.3 % (0-6); HEMATOCRIT 31.8 % (35.0-50.0); HEMOGLOBIN 10.5 g/dL (12.0-18.0); LYMPHOCYTES 22.3 % (24-44); MCH 29.6 (27-36); MCHC 32.9 g/dl (30-36); MCV 89.8 fl (81-99); MONOCYTES 9.5 % (0-12); NEUTROPHILS 66.1 % (39-80); PLATELET COUNT 239 K/uL (140-440); RBC 3.54 M/ul (4.3-5.7); RDW 14.8 (10.5-15.0)
[2024-07-16 19:07] LABS: ALBUMIN 3.7 g/dL (3.4-5.0); ALBUMIN/GLOBULIN RATIO 0.9 (1.1-2.4); ANION GAP 17.3 (7-21); BILIRUBIN, TOTAL 0.2 ng/dL (0.2-1.0); BUN/CREATININE RATIO 16.89 (6.0-28.6); CALCIUM 9.1 mg/dL (8.5-10.1); CREATININE, SERUM 1.48 mg/dL (0.55-1.02); POTASSIUM 4.3 mmol/L (3.5-5.1); PROTEIN, TOTAL 7.8 g/dL (6.4-8.2)
[2024-07-16 19:19] LABS: CORONAVIRUS COVID-19 AG NEGATIVE (NEGATIVE); INFLUENZA A AG NEGATIVE (NEGATIVE); INFLUENZA B AG NEGATIVE (NEGATIVE)
[2024-07-16] MEDS ORDERED: COQ-10100 MG PO (19:32)
[2024-07-16] MEDS ORDERED: IPRAT-ALBUT 0.5-3 ML INH (19:34)
[2024-07-16] MEDS ORDERED: INHALER, ASSIST DEVICES 1 EACH SPACER MISC ONE (20:30)
[2024-07-16] MEDS ORDERED: methylPREDNISolone 4 MG HOME.PACK PO ONE (20:30)
[2024-07-16] MEDS ORDERED: AZITHROMYCIN 250 MG HOME.PACK PO ONE (20:30)
[2024-07-16] MEDS ORDERED: ALBUTEROL SULFATE 8 GM HOME.PACK INH ONE (20:30)
[2024-07-16 21:03] VITALS: BP 96/50
--- NOTE | 2024-07-17 15:38 | EKG ---
[facility] [address] [facility] [place] [address] Signed Normal sinus rhythm Left anterior fascicular block Inferior infarct (cited on or before 25-FEB-2021) Anterolateral infarct (cited on or before 25-FEB-2021) Abnormal ECG When compared with ECG of 08-JUN-2024 06:24, Questionable change in initial forces of Lateral leads Confirmed by Staci Nguyen MD ([id number]) on 07/17/2024 1:19:48 PM Electronically Signed By: STACI NGUYEN MD 07/17/24 1538 PATIENT NAME: BRISSA COATES Electrocardiogram DATE OF : 41 PHYSICIAN: STACI NGUYEN MD REPORT #: [id number] REPORT IS CONFIDENTIAL AND NOT TO BE RELEASED WITHOUT AUTHORIZATION
== END 2024-07-16 20:46 | disposition home or self-care (01) ==
LOC: ED 17:52
PROVIDERS: Emergency Medicine
DX: J44.1 Chronic obstructive pulmonary disease with (acute) exacerbation (principal); I50.9 Heart failure, unspecified; I25.2 Old myocardial infarction; F03.90 Unspecified dementia, unspecified severity, without behavioral disturbance, psychotic disturbance, mood disturbance, and anxiety; Z79.1 Long term (current) use of non-steroidal anti-inflammatories (NSAID); Z79.82 Long term (current) use of aspirin; Z79.899 Other long term (current) drug therapy
CPT/HCPCS: 36415; 71045; 80053; 83735; 84484; 85025; 93005; 93010; 94664; 99285-25